=== PATIENT | female | born 1960 | race Caucasian/White ===

== ENCOUNTER 2016-12-27 14:40 | Emergency (ER) | payer OTHER, SELFPAY ==
--- NOTE | 2016-12-27 15:33 | CT ---
CT OF BRAIN PERFORMED WITHOUT CONTRAST ENHANCEMENT: Date: 12/27/16 HISTORY: Altered mental status. COMPARISON: 10/27/14. FINDINGS: The ventricular and cisternal system is within normal limits. There are no signs of intracerebral he morrhage or extra-axial fluid collections. Some minimal mucosal change is seen within the right ethm oid air cells. IMPRESSION: No acute intracranial abnormalities. POS: [facility]
[2016-12-27 15:49] LABS: #Basophils 0.1 thou/uL (0.0-0.2); #Eosinphils 0.1 thou/uL (0.0-0.7); #Lymphocytes 1.5 thou/uL (1.20-3.40); #Monocytes 0.7 thou/uL (0.11-0.59); #Neutrophils 9.2 thou/uL (1.40-6.50); %Basophils 0.6 % (0.0-1.0); %Eosinophils 0.6 % (0.0-10.0); %Lymphocytes 13.3 % (21.0-51.0); Hematocrit 49.2 % (36.0-47.0); Mean Platelet Volume 7.2 fL (7.4-10.4); Red Blood Cell (RBC) Count 5.35 mill/uL (4.20-5.40); White Blood Cell (WBC) Count 11.6 thou/uL (4.8-10.8)
[2016-12-27 16:12] LABS: ALT (SGPT) 11 U/L (8-55); AST (SGOT) 17 U/L (5-34); Acetaminophen Less than 6.0 mcg/mL (10.0-30.0); Alkaline Phosphatase 82 U/L (40-150); Anion Gap 16 mmol/L (10-20); BUN (Urea Nitrogen) 14 mg/dL (9.8-20.1); Bilirubin, Total 0.5 mg/dL (0.2-1.2); CK (CPK) 373 U/L (29-168); Calc. Creatinine Clearance 0 mL/min (70-130); Calcium 9.6 mg/dL (7.8-10.44); Carbon Dioxide 23 mmol/L (22-29); Chloride 101 mmol/L (98-107); Estimated GFR-MDRD 53; Globulin 3.4 g/dL (2.4-3.5); Protein, Total 7.3 g/dL (6.0-8.3); Salicylate Less than 8.0 mg/dL (15.0-30.0)
--- NOTE | 2016-12-27 16:13 | RAD ---
PORTABLE CHEST ONE VIEW: 12/27/16 at 2:36 p.m. HISTORY: Altered mental status. FINDINGS: Comparison is made with the exam of 10/09/16. The heart size is normal. The aorta is tortuous. The lungs are expanded without focal areas of conso lidation, pneumothorax, elias pulmonary edema or pleural effusions. IMPRESSION: No radiographic evidence of acute cardiopulmonary process. POS: [facility]
[2016-12-27 16:24] LABS: Bilirubin Small (Negative); Blood, Urine Negative (Negative); Glucose, Urine (Dipstick) Negative (Negative); Ketone, Urine Negative (Negative); Nitrite Negative (Negative); Protein, Urine (Dipstick) Negative (Neg-Trace)
[2016-12-27] MEDS ORDERED: Potassium Chloride 20 MEQ TAB ONE ×2 (16:25→23:19)
[2016-12-27 16:32] LABS: Amphetamine Not Detected (NotDetected); Methamphetamine Not Detected (NotDetected)
[2016-12-27 16:33] LABS: Methadone Not Detected (NotDetected)
[2016-12-27] MEDS ORDERED: Nicotine 14 MG PATCH TOP SCH (23:30)
[2016-12-28] MEDS ORDERED: Doxepin HCl 25 MG CAP PO PRN (14:22)
[2016-12-28] MEDS ORDERED: rOPINIRole HCl 1 MG TAB PO SCH (21:00)
[2016-12-28] MEDS ORDERED: clonazePAM 1 MG TAB PO SCH (21:00)
[2016-12-29] MEDS ORDERED: clonazePAM 1 MG TAB ONE ×2 (08:40→23:17)
[2016-12-29] MEDS ORDERED: Hydrochlorothiazide 25 MG TAB PO SCH (09:00)
[2016-12-29] MEDS ORDERED: clonazePAM 1 MG TAB PO SCH (21:15)
[2016-12-30] MEDS ORDERED: clonazePAM 1 MG TAB ONE (08:57)
--- NOTE | 2017-01-04 11:43 | EKG ---
Test Reason : DIAGNOSING PURPOSES Blood Pressure : / mmHG Vent. Rate : 099 BPM Atrial Rate : 099 BPM P-R Int : 150 ms QRS Dur : 080 ms QT Int : 538 ms P-R-T Axes : 051 020 070 degrees QTc Int : 690 ms Normal sinus rhythm Nonspecific T wave abnormality Prolonged QT Abnormal ECG Confirmed by VISHAL LOO, NAVYA ([id number]), digital editor SUZANNE SANDERS ([id number]) on 01/04/2017 11:43:01 AM Referred By: Confirmed By:NAVYA RODGERS MD
== END 2016-12-30 18:36 ==
LOC: ERS 14:40
DX: F23 Brief psychotic disorder (principal); F17.210 Nicotine dependence, cigarettes, uncomplicated; F43.10 Post-traumatic stress disorder, unspecified; F31.9 Bipolar disorder, unspecified; F41.9 Anxiety disorder, unspecified; I10 Essential (primary) hypertension; Z79.899 Other long term (current) drug therapy
CPT/HCPCS: 36415; 51701; 70450; 71010; 80053; 80306; 80307; 81003; 82140; 82550; 84443; 85025; 93005; A4353

== ENCOUNTER 2017-06-15 14:19 | Emergency (ER) | payer SELFPAY ==
[2017-06-15 14:49] LABS: #Basophils 0.1 thou/uL (0.0-0.2); #Eosinphils 0.3 thou/uL (0.0-0.7); #Monocytes 0.5 thou/uL (0.11-0.59); #Neutrophils 4.1 thou/uL (1.40-6.50); %Basophils 0.9 % (0.0-1.0); %Eosinophils 3.9 % (0.0-10.0); %Lymphocytes 28.9 % (21.0-51.0); %Monocytes 6.8 % (0.0-10.0); %Neutrophils 59.6 % (42.0-75.0); Hemoglobin 14.2 g/dL (12.0-16.0); Mean Corpuscular HGB CONC 34.2 g/dL (32.0-36.0); Mean Corpuscular Hemoglobin 30.9 pg (27.0-31.0); Mean Corpuscular Volume 90.4 fl (81.0-99.0); Mean Platelet Volume 8.2 fL (7.4-10.4); Platelet Count 259 thou/uL (130-400); RBC Distribution Width 14.9 % (11.5-14.5); White Blood Cell (WBC) Count 6.9 thou/uL (4.8-10.8)
[2017-06-15 14:55] LABS: Bilirubin Negative (Negative); Blood, Urine Negative (Negative); Clarity CLEAR (Clear); Glucose, Urine (Dipstick) Negative (Negative); Leukocyte Negative (Negative); Nitrite Negative (Negative); Protein, Urine (Dipstick) Negative (Neg-Trace); Specific Gravity, Urine 1.016 (1.002-1.036)
[2017-06-15 15:02] LABS: Amphetamine Not Detected (NotDetected); Barbiturates Screen Not Detected (NotDetected); Benzodiazepine Screen Not Detected (NotDetected); Cocaine Metabolite Screen Not Detected (NotDetected); Medtox Control Line Valid? VALID (VALID); Medtox Reader # READER 1; Methadone Not Detected (NotDetected); Methamphetamine Not Detected (NotDetected); Opiate Screen Not Detected (NotDetected); Oxycodone Screen Not Detected (NotDetected); Phencyclidine (PCP) Not Detected (NotDetected); THC/Cannabinoid Screen Not Detected (NotDetected); Tricyclic Screen Not Detected (NotDetected)
[2017-06-15 15:14] LABS: ALT (SGPT) 7 U/L (8-55); AST (SGOT) 11 U/L (5-34); Acetaminophen Less than 6.0 mcg/mL (10.0-30.0); Albumin 3.9 g/dL (3.5-5.0); Alcohol Less than 10 mg/dL (Less than 10); Alkaline Phosphatase 87 U/L (40-150); Anion Gap 15 mmol/L (10-20); BUN (Urea Nitrogen) 17 mg/dL (9.8-20.1); Bilirubin, Total 0.3 mg/dL (0.2-1.2); Calc. Creatinine Clearance 0 mL/min (70-130); Carbon Dioxide 23 mmol/L (22-29); Chloride 105 mmol/L (98-107); Estimated GFR-MDRD 62; Globulin 3.2 g/dL (2.4-3.5); Glucose 97 mg/dL (70-105); Potassium 4.1 mmol/L (3.5-5.1); Protein, Total 7.1 g/dL (6.0-8.3); Salicylate Less than 8.0 mg/dL (15.0-30.0); Sodium 139 mmol/L (136-145)
== END 2017-06-15 17:05 | disposition home or self-care (01) ==
LOC: ERS 14:19
DX: R45.851 Suicidal ideations (principal); F32.9 Major depressive disorder, single episode, unspecified; I10 Essential (primary) hypertension; F20.9 Schizophrenia, unspecified; F41.9 Anxiety disorder, unspecified; F43.10 Post-traumatic stress disorder, unspecified; F17.210 Nicotine dependence, cigarettes, uncomplicated; Z79.899 Other long term (current) drug therapy
CPT/HCPCS: 36415; 80053; 80306; 80307; 81003; 84443; 85025; 99285

== ENCOUNTER 2017-07-19 12:14 | Emergency (ER) | payer SELFPAY ==
--- NOTE | 2017-07-19 13:20 | RAD ---
CHEST: Date: 07/19/17 HISTORY: Cough. COMPARISON: Chest radiograph dated 12/27/16. FINDINGS: New from the comparison examination are peripheral improving masses versus less likely consolidation. Large sliding hiatal hernia. Most of these peripheral masses are in the left upper lobe and left low er lobe. No pneumothorax. IMPRESSION: 1. Findings concerning for masses in the left upper lobe and left lower lobe, versus less likely are as of peripheral consolidation. Follow-up CT of the chest recommended. 2. Large sliding hiatal hernia. CODE T. CODE LN. POS: [facility]
== END 2017-07-19 15:09 | disposition home or self-care (01) ==
LOC: ERS 12:14
DX: J18.9 Pneumonia, unspecified organism (principal); F20.9 Schizophrenia, unspecified; F41.9 Anxiety disorder, unspecified; F31.9 Bipolar disorder, unspecified; F43.10 Post-traumatic stress disorder, unspecified; F17.210 Nicotine dependence, cigarettes, uncomplicated; I10 Essential (primary) hypertension; Z79.899 Other long term (current) drug therapy; Z71.6 Tobacco abuse counseling
CPT/HCPCS: 71046; 93005; 99406

== ENCOUNTER 2017-08-11 10:29 | Emergency (ER) | payer SELFPAY | END 2017-08-11 12:19 | disposition home or self-care (01) | LOC: ERS 10:29 | DX: J18.9 Pneumonia, unspecified organism (principal); I10 Essential (primary) hypertension; F20.9 Schizophrenia, unspecified; F41.9 Anxiety disorder, unspecified; F31.9 Bipolar disorder, unspecified; F43.10 Post-traumatic stress disorder, unspecified; F17.210 Nicotine dependence, cigarettes, uncomplicated | CPT/HCPCS: 99281 ==

== ENCOUNTER 2017-09-23 10:31 | Emergency (ER) | payer SELFPAY ==
[2017-09-23 11:43] LABS: #Basophils 0.1 thou/uL (0.0-0.2); #Eosinphils 0.2 thou/uL (0.0-0.7); #Lymphocytes 1.8 thou/uL (1.20-3.40); #Monocytes 0.4 thou/uL (0.11-0.59); #Neutrophils 3.4 thou/uL (1.40-6.50); %Basophils 1.2 % (0.0-1.0); %Eosinophils 3.6 % (0.0-10.0); %Monocytes 6.9 % (0.0-10.0); %Neutrophils 57.3 % (42.0-75.0); Hemoglobin 14.3 g/dL (12.0-16.0); Mean Corpuscular HGB CONC 32.6 g/dL (32.0-36.0); Mean Corpuscular Hemoglobin 28.9 pg (27.0-31.0); Mean Corpuscular Volume 88.7 fL (78.0-98.0); Mean Platelet Volume 8.7 fL (7.4-10.4); Platelet Count 234 thou/uL (130-400); RBC Distribution Width 16.7 % (11.5-14.5); Red Blood Cell (RBC) Count 4.95 mill/uL (4.20-5.40); White Blood Cell (WBC) Count 5.9 thou/uL (4.8-10.8)
[2017-09-23 11:52] LABS: ALT (SGPT) 12 U/L (8-55); AST (SGOT) 16 U/L (5-34); Albumin 4.2 g/dL (3.5-5.0); Alcohol Less than 10 mg/dL (Less than 10); Alkaline Phosphatase 97 U/L (40-150); Anion Gap 13 mmol/L (10-20); BUN (Urea Nitrogen) 14 mg/dL (9.8-20.1); Bilirubin, Total 0.3 mg/dL (0.2-1.2); Calc. Creatinine Clearance 0 mL/min (70-130); Calcium 9.3 mg/dL (7.8-10.44); Carbon Dioxide 24 mmol/L (22-29); Chloride 103 mmol/L (98-107); Estimated GFR-MDRD 54; Globulin 3.4 g/dL (2.4-3.5); Glucose 81 mg/dL (70-105); Potassium 4.5 mmol/L (3.5-5.1); Protein, Total 7.6 g/dL (6.0-8.3); Sodium 135 mmol/L (136-145)
[2017-09-23 11:53] LABS: Acetaminophen Less than 6.0 mcg/mL (10.0-30.0); Alcohol Less than 10 mg/dL (Less than 10); CK (CPK) 44 U/L (29-168); Salicylate Less than 8.0 mg/dL (15.0-30.0)
[2017-09-23 12:09] LABS: Bilirubin Negative (Negative); Blood, Urine Negative (Negative); Clarity CLEAR (Clear); Glucose, Urine (Dipstick) Negative (Negative); Leukocyte Small (Negative); Nitrite Negative (Negative); Protein, Urine (Dipstick) Negative (Neg-Trace); Specific Gravity, Urine 1.016 (1.002-1.036); pH, Urine 6.5 (5.0-9.0)
[2017-09-23 12:10] LABS: Bacteria/HPF 1+ HPF (None Seen); Hyaline Casts/LPF 0-3 HYALINE CAST LPF (0-3 Hyaline); Pathc Cast-AUWi Flag 0.58 (0-2.49); RBC/HPF 0-3 HPF (0-3)
[2017-09-23 12:24] LABS: Amphetamine Not Detected (NotDetected); Barbiturates Screen Not Detected (NotDetected); Benzodiazepine Screen Not Detected (NotDetected); Cocaine Metabolite Screen Not Detected (NotDetected); Medtox Control Line Valid? VALID (VALID); Medtox Reader # READER 4; Methadone Not Detected (NotDetected); Methamphetamine Not Detected (NotDetected); Opiate Screen Not Detected (NotDetected); Oxycodone Screen Not Detected (NotDetected); Phencyclidine (PCP) Not Detected (NotDetected); THC/Cannabinoid Screen Not Detected (NotDetected); Tricyclic Screen Detected (NotDetected)
[2017-09-23] MEDS ORDERED: Acetaminophen 500 MG TAB ONE (18:35)
[2017-09-23] MEDS ORDERED: Amitriptyline HCl 100 MG TAB PO SCH (22:15)
[2017-09-23] MEDS ORDERED: Prazosin HCl 1 MG CAP PO SCH (22:15)
[2017-09-23] MEDS ORDERED: Gabapentin 300 MG CAP PO SCH (22:15)
== END 2017-09-24 03:45 ==
LOC: ERS 10:31
DX: F32.9 Major depressive disorder, single episode, unspecified (principal); I10 Essential (primary) hypertension; F20.9 Schizophrenia, unspecified; F41.9 Anxiety disorder, unspecified; F17.210 Nicotine dependence, cigarettes, uncomplicated; F43.10 Post-traumatic stress disorder, unspecified; Z79.899 Other long term (current) drug therapy
CPT/HCPCS: 36415; 80053; 80306; 80307; 81003; 81015; 82550; 84443; 85025; 87086; 93005; 99285

== ENCOUNTER 2018-12-02 08:51 | Emergency (ER) | payer MEDICAID ==
--- NOTE | 2018-12-02 09:31 | CT ---
HEAD CT NONCONTRAST: Date: 12/02/18 COMPARISON: 12/27/16. INDICATION: Altered mental status. FINDINGS: There is no ventriculomegaly, mass effect, midline shift, or acute intracranial hemorrhage. Calvarium is intact. Paranasal sinuses are clear. IMPRESSION: No acute intracranial abnormality. POS: [facility]
[2018-12-02 09:52] LABS: #Eosinphils 0.1 thou/uL (0.0-0.7); #Lymphocytes 1.5 thou/uL (1.20-3.40); #Monocytes 0.9 thou/uL (0.11-0.59); #Neutrophils 10.4 thou/uL (1.40-6.50); %Basophils 0.3 % (0.0-1.0); %Eosinophils 0.5 % (0.0-10.0); %Lymphocytes 11.6 % (21.0-51.0); %Monocytes 6.8 % (0.0-10.0); %Neutrophils 80.7 % (42.0-75.0); Hemoglobin 17.6 g/dL (12.0-16.0); Mean Corpuscular HGB CONC 32.2 g/dL (32.0-36.0); Mean Corpuscular Hemoglobin 30.4 pg (27.0-31.0); Mean Corpuscular Volume 94.7 fL (78.0-98.0); Platelet Count 270 thou/uL (130-400); RBC Distribution Width 17.4 % (11.5-14.5); Red Blood Cell (RBC) Count 5.77 mill/uL (4.20-5.40); White Blood Cell (WBC) Count 12.9 thou/uL (4.8-10.8)
[2018-12-02 10:33] LABS: Bacteria/HPF 2+ HPF (None Seen); Bilirubin 1+ (Negative); Blood, Urine Trace (Negative); Clarity Turbid (Clear); Glucose, Urine (Dipstick) Normal (Negative); Leukocyte 500 Leu/uL (Negative); Nitrite Negative (Negative); Protein, Urine (Dipstick) 50 mg/dL (Neg-Trace); Urobilinogen 6 mg/dL (Less than 2)
[2018-12-02 10:49] LABS: Amphetamine Not Detected (NotDetected); Barbiturates Screen Not Detected (NotDetected); Benzodiazepine Screen Not Detected (NotDetected); Cocaine Metabolite Screen Not Detected (NotDetected); Medtox Control Line Valid? VALID (VALID); Medtox Reader # READER 4; Methadone Not Detected (NotDetected); Methamphetamine Not Detected (NotDetected); Opiate Screen Not Detected (NotDetected); Oxycodone Screen Not Detected (NotDetected); Phencyclidine (PCP) Not Detected (NotDetected); THC/Cannabinoid Screen Detected (NotDetected); Tricyclic Screen Detected (NotDetected)
[2018-12-02 11:00] LABS: ALT (SGPT) 16 U/L (8-55); AST (SGOT) 17 U/L (5-34); Acetaminophen Less than 6.0 mcg/mL (10.0-30.0); Albumin 4.2 g/dL (3.5-5.0); Alcohol Less than 10 mg/dL (Less than 10); Alkaline Phosphatase 94 U/L (40-150); Anion Gap 16 mmol/L (10-20); BUN (Urea Nitrogen) 25 mg/dL (9.8-20.1); Bilirubin, Total 1.1 mg/dL (0.2-1.2); CK (CPK) 241 U/L (29-168); Calc. Creatinine Clearance 0 mL/min (70-130); Calcium 9.2 mg/dL (7.8-10.44); Carbon Dioxide 19 mmol/L (22-29); Chloride 107 mmol/L (98-107); Estimated GFR-MDRD 68; Globulin 2.8 g/dL (2.4-3.5); Glucose 109 mg/dL (70-105); Potassium 3.7 mmol/L (3.5-5.1); Salicylate Less than 8.0 mg/dL (15.0-30.0); Sodium 138 mmol/L (136-145)
--- NOTE | 2018-12-06 01:03 | EKG ---
Test Reason : Blood Pressure : / mmHG Vent. Rate : 121 BPM Atrial Rate : 121 BPM P-R Int : 118 ms QRS Dur : 072 ms QT Int : 350 ms P-R-T Axes : 066 020 071 degrees QTc Int : 497 ms Sinus tachycardia Possible Left atrial enlargement Nonspecific ST and T wave abnormality Abnormal ECG Confirmed by ALVARO RAY ([id number]), content editor EVERARDO EVERETT ([id number]) on 12/06/2018 1:02:09 AM Referred By: Confirmed By:ALVARO RAY
== END 2018-12-02 16:20 | disposition home or self-care (01) ==
LOC: ERS 08:51
DX: G47.00 Insomnia, unspecified (principal); F31.9 Bipolar disorder, unspecified; R00.0 Tachycardia, unspecified; I10 Essential (primary) hypertension; F20.9 Schizophrenia, unspecified; F43.10 Post-traumatic stress disorder, unspecified; F17.210 Nicotine dependence, cigarettes, uncomplicated; Z79.899 Other long term (current) drug therapy
CPT/HCPCS: 36415; 70450; 80053; 80306; 80307; 81003; 81015; 82550; 84484; 85025; 87086; 93005; 96360; 96361

== ENCOUNTER 2020-01-25 12:52 | Outpatient (CLI) | payer OTHER ==
--- NOTE | 2020-01-26 09:02 | MMO ---
Bilateral MAMMO Bilat Screen [facility]. CLINICAL HISTORY: Patient is 59 years old and is seen for screening. The patient has no family history of breast cancer. The patient has no personal history of cancer. VIEWS: The views performed were: bilateral craniocaudal and bilateral mediolateral oblique. FILMS COMPARED: The present examination has been compared to prior imaging studies performed at [facility] on 11/18/2005, 12/18/2005, 08/02/2014 and 08/03/2015. This study has been interpreted with the assistance of computer-aided detection. MAMMOGRAM FINDINGS: The breasts are almost entirely fat. There are no suspicious masses, suspicious calcifications, or new areas of architectural distortion. IMPRESSION: THERE IS NO MAMMOGRAPHIC EVIDENCE OF MALIGNANCY. A ROUTINE FOLLOW-UP MAMMOGRAM IN 1 YEAR IS RECOMMENDED. ACR BI-RADS Category 1 - Negative MAMMOGRAPHY NOTE: 1. A negative mammogram report should not delay a biopsy if a dominant of clinically suspicious mass is present. 2. Approximately 10% to 15% of breast cancers are not detected by mammography. 3. Adenosis and dense breasts may obscure an underlying neoplasm. Reported by: JULIETA YARBROUGH MD Electonically Signed: [id number]
== END 2020-01-25 12:53 | disposition home or self-care (01) ==
LOC: BICMAMMO 12:52
PROVIDERS: ATTEND Hospitalist
DX: Z12.31 Encounter for screening mammogram for malignant neoplasm of breast (principal)
CPT/HCPCS: 77067

== ENCOUNTER 2020-07-21 10:17 | Inpatient (IN) | payer OTHER ==
[2020-07-21 11:31] LABS: Hemoglobin 14.9 g/dL (12.0-16.0); Mean Corpuscular HGB CONC 32.6 g/dL (32.0-36.0); Mean Corpuscular Hemoglobin 29.8 pg (27.0-31.0); Mean Corpuscular Volume 91.4 fL (78.0-98.0); Mean Platelet Volume 9.7 fL (7.4-10.4); Platelet Count 291 thou/uL (130-400); RBC Distribution Width 15.6 % (11.5-14.5); Red Blood Cell (RBC) Count 5.01 mill/uL (4.20-5.40); White Blood Cell (WBC) Count 13.7 thou/uL (4.8-10.8)
[2020-07-21 11:48] LABS: Band 2 % (5-11); Lymphocytes 18 % (21-51); MDiff Complete? YES; Monocytes 5 % (0-10); Neutrophil 74 % (42-75); Platelet Morphology Comment Appears Adequate; RBC Morphology Normal
[2020-07-21 11:57] LABS: ALT (SGPT) 17 U/L (8-55); AST (SGOT) 20 U/L (5-34); Albumin 4.5 g/dL (3.4-4.8); Alkaline Phosphatase 98 U/L (40-110); Anion Gap 19 mmol/L (10-20); BUN (Urea Nitrogen) 23 mg/dL (9.8-20.1); Bilirubin, Total 0.6 mg/dL (0.2-1.2); Calc. Creatinine Clearance 0 mL/min (70-130); Calcium 9.4 mg/dL (7.8-10.44); Carbon Dioxide 18 mmol/L (23-31); Chloride 105 mmol/L (98-107); Glucose 122 mg/dL (80-115); Potassium 4.1 mmol/L (3.5-5.1); Protein, Total 7.5 g/dL (5.8-8.1); Sodium 138 mmol/L (136-145)
[2020-07-21 12:33] LABS: Bacteria/HPF None Seen HPF (None Seen); Squamous Epithelial 0-3 HPF (0-3); WBC/HPF 0-3 HPF (0-3)
[2020-07-21 12:36] LABS: Bilirubin 1+ (Negative); Blood, Urine Negative (Negative); Clarity Clear (Clear); Glucose, Urine (Dipstick) Normal (Negative); Ketone, Urine 40 mg/dL (Negative); Leukocyte Negative Leu/uL (Negative); Nitrite Negative (Negative); Protein, Urine (Dipstick) 50 mg/dL (Neg-Trace); Specific Gravity, Urine 1.036 (1.002-1.036); Urobilinogen 6 mg/dL (Less than 2)
[2020-07-21] MEDS ORDERED: Ondansetron PF 4 MG/2 ML Vial ONE (12:38)
[2020-07-21] MEDS ORDERED: Vancomycin 1 GM/200 ML BAG ONE (12:38)
[2020-07-21] MEDS ORDERED: cefTRIAXone\\ROCEPHIN 2 GM VIAL ONE (12:38)
[2020-07-21 14:24] VITALS: BMI 34.3
[2020-07-21] MEDS ORDERED: Calcium Carbonate 500 MG ChewTAB PO PRN (14:43)
[2020-07-21] MEDS ORDERED: Ondansetron ODT 4 MG TAB SL PRN (14:45)
[2020-07-21] MEDS ORDERED: Sodium Chloride 0.9% 1,000 ML IV SCH (14:45)
[2020-07-21] MEDS ORDERED: Acetaminophen 325 MG TAB PO PRN (14:45)
[2020-07-21] MEDS ORDERED: Ondansetron PF 4 MG/2 ML Vial IVP PRN (14:45)
[2020-07-21 15:15] LABS: Lactic Acid 1.8 mmol/L (0.5-2.2)
[2020-07-21] MEDS ORDERED: Lactated Ringer's 1,000 ML IV SCH (15:15)
[2020-07-21] MEDS ORDERED: Albuterol Sulfate 2.5 mg/3 ml Neb NEB PRN (15:43)
[2020-07-21 15:47] LABS: Amphetamine Not Detected (NotDetected); Barbiturates Screen Not Detected (NotDetected); Benzodiazepine Screen Not Detected (NotDetected); Cocaine Metabolite Screen Not Detected (NotDetected); Medtox Control Line Valid? VALID (VALID); Medtox Reader # READER 1; Methadone Not Detected (NotDetected); Methamphetamine Not Detected (NotDetected); Opiate Screen Not Detected (NotDetected); Oxycodone Screen Not Detected (NotDetected); Phencyclidine (PCP) Not Detected (NotDetected); THC/Cannabinoid Screen Detected (NotDetected); Tricyclic Screen Detected (NotDetected)
[2020-07-21 15:51] LABS: Thyroid Stimulating Hormone 0.6357 uIU/mL (0.35-4.94)
[2020-07-21 16:26] LABS: Hemoglobin A1c 5.7 % (4.0-6.0)
[2020-07-21 16:57] LABS: HIV (1/2) Antibody/Antigen Non-Reactive (NonReactive); HIV 1/2 INDEX 0.17 S/CO (<1.00)
[2020-07-21 17:02] LABS: Syphilis Antibody Index 16.44 S/CO (<1.00 Non-Reactive)
[2020-07-21 17:19] LABS: Actual Bicarbonate (HCO3v) 21 mEq/L (22-28); Base Excess -2.5 mEq/L (-2.0 to +3.0); Calcium, Ionized (venous) 1.09 mmol/L (1.16-1.32); Chloride (VBG) 108 mmol/L (98-106); Hemoglobin (Hb) 13.9 g/dL (11.7-16.0); Potassium (VBG) 3.57 mmol/L (3.70-5.30); Sodium 139.9 mmol/L (133-146); pH (venous) 7.41 (7.32-7.43)
[2020-07-21 17:59] LABS: Syphilis Antibody INDETERMINATE (Nonreactive)
[2020-07-21] MEDS: Lactated Ringer's 1,000 ML IV SCH ×2 (18:10→23:00)
[2020-07-21] MEDS: Ipratropium Bromide 2.5 ml Neb NEB SCH (18:49)
[2020-07-21 19:53] LABS: SARS-CoV-2 IgG Ab Non-Reactive (NonReactive); SARS-CoV-2 IgG Index 0.02 S/CO (< 1.40)
[2020-07-21] MEDS: Atorvastatin Calcium 10 MG TAB PO SCH (20:41)
[2020-07-22] MEDS: Ipratropium Bromide 2.5 ml Neb NEB SCH ×4 (00:24→19:00)
[2020-07-22 04:58] LABS: #Basophils 0.1 thou/uL (0.0-0.2); #Eosinphils 0.1 thou/uL (0.0-0.7); #Monocytes 0.9 thou/uL (0.11-0.59); #Neutrophils 9.4 thou/uL (1.40-6.50); %Eosinophils 0.7 % (0.0-10.0); %Lymphocytes 15.9 % (21.0-51.0); %Monocytes 6.9 % (0.0-10.0); %Neutrophils 75.6 % (42.0-75.0); Hemoglobin 12.6 g/dL (12.0-16.0); Mean Corpuscular HGB CONC 32.7 g/dL (32.0-36.0); Mean Corpuscular Volume 91.8 fL (78.0-98.0); Mean Platelet Volume 9.4 fL (7.4-10.4); Platelet Count 227 thou/uL (130-400); RBC Distribution Width 15.4 % (11.5-14.5); White Blood Cell (WBC) Count 12.4 thou/uL (4.8-10.8)
[2020-07-22 05:04] LABS: Anion Gap 13 mmol/L (10-20); BUN (Urea Nitrogen) 20 mg/dL (9.8-20.1); Calc. Creatinine Clearance 97 mL/min (70-130); Calcium 8.4 mg/dL (7.8-10.44); Carbon Dioxide 21 mmol/L (23-31); Chloride 110 mmol/L (98-107); Glucose 98 mg/dL (80-115); Potassium 3.8 mmol/L (3.5-5.1); Sodium 140 mmol/L (136-145)
[2020-07-22] MEDS: Lactated Ringer's 1,000 ML IV SCH ×3 (05:34→15:52)
[2020-07-22] MEDS: Lisinopril/Hydrochlorothiazide 10 mg/12.5 mg Tablet PO SCH (08:37)
[2020-07-22] MEDS: Enoxaparin Sodium 40 MG/0.4 ML SYRINGE SC SCH (08:37)
[2020-07-22] MEDS: Nicotine 14 MG PATCH TD SCH (09:24)
[2020-07-22 11:59] LABS: SARS-CoV-2 NAA Rapid Test Not Detected (NotDetected)
[2020-07-22] MEDS ORDERED: Ondansetron ORAL SOLN. 4 MG/5 ML UDCUP PO PRN (17:04)
[2020-07-22] MEDS: Atorvastatin Calcium 10 MG TAB PO SCH (22:05)
[2020-07-23] MEDS: Lactated Ringer's 1,000 ML IV SCH ×2 (06:08→08:14)
[2020-07-23] MEDS: Ipratropium Bromide 2.5 ml Neb NEB SCH ×4 (07:18→19:38)
[2020-07-23] MEDS: Enoxaparin Sodium 40 MG/0.4 ML SYRINGE SC SCH (08:06)
[2020-07-23] MEDS: Lisinopril/Hydrochlorothiazide 10 mg/12.5 mg Tablet PO SCH (08:06)
[2020-07-23] MEDS: Nicotine 14 MG PATCH TD SCH (08:06)
[2020-07-23] MEDS ORDERED: Artificial Tear Sol 15 ML BOT EA EYE PRN (08:09)
[2020-07-23] MEDS: Polyethylene Glycol 3350 17 GM Packet PO SCH ×2 (08:14→08:19)
[2020-07-23] MEDS ORDERED: Senokot 8.6 MG TAB PO SCH (08:15)
[2020-07-23] MEDS: Ondansetron ODT 4 MG TAB PO PRN ×2 (14:12→22:15)
[2020-07-23] MEDS: Atorvastatin Calcium 10 MG TAB PO SCH (21:48)
[2020-07-24] MEDS: Ipratropium Bromide 2.5 ml Neb NEB SCH ×2 (01:40→07:40)
[2020-07-24] MEDS: Ondansetron ODT 4 MG TAB PO PRN (04:28)
[2020-07-24] MEDS: Lisinopril/Hydrochlorothiazide 10 mg/12.5 mg Tablet PO SCH (07:56)
[2020-07-24] MEDS: Enoxaparin Sodium 40 MG/0.4 ML SYRINGE SC SCH (07:56)
[2020-07-24] MEDS: Polyethylene Glycol 3350 17 GM Packet PO SCH (07:56)
[2020-07-24] MEDS: Nicotine 14 MG PATCH TD SCH (07:57)
[2020-07-24] MEDS ORDERED: Pantoprazole 40 MG GRANULES PACKET PO SCH (10:15)
[2020-07-24] MEDS ORDERED: Senokot 8.6 MG TAB PO SCH (10:15)
[2020-07-24 11:10] VITALS: BP 132/66; TEMP 98.3
[2020-07-24 12:37] LABS: Hep B Surface AG-Rflx Sendout Negative (Negative); Hepatitis B Core Total Negative (Negative); Hepatitis B Surface AB-Sendout Non Reactive (.)
== END 2020-07-24 13:05 | disposition home or self-care (01) | DRG 917 ==
LOC: ERS 10:17 → 2NO 12:48 → OBSVTOIN 07-23 09:42
PROVIDERS: ADMIT Student in an Organized Health Care Education/Training Program; ATTEND Student in an Organized Health Care Education/Training Program
DX: T42.6X1A Poisoning by other antiepileptic and sedative-hypnotic drugs, accidental (unintentional), initial encounter (principal); G92 Toxic encephalopathy; K52.1 Toxic gastroenteritis and colitis; Z20.822 Contact with and (suspected) exposure to COVID-19; R11.2 Nausea with vomiting, unspecified; F17.210 Nicotine dependence, cigarettes, uncomplicated; F31.9 Bipolar disorder, unspecified; I10 Essential (primary) hypertension; E78.5 Hyperlipidemia, unspecified; R73.03 Prediabetes; G62.9 Polyneuropathy, unspecified; F41.9 Anxiety disorder, unspecified; J44.9 Chronic obstructive pulmonary disease, unspecified; K21.9 Gastro-esophageal reflux disease without esophagitis; E86.0 Dehydration; E53.8 Deficiency of other specified B group vitamins; A08.4 Viral intestinal infection, unspecified; R30.0 Dysuria; K44.9 Diaphragmatic hernia without obstruction or gangrene; K59.00 Constipation, unspecified; Z79.899 Other long term (current) drug therapy
CPT/HCPCS: 0240U; 36415; 36416; 51701; 70450; 71045; 80048; 80053; 80306; 80307; 81003; 81015; 82010; 82607; 82805; 83036; 83605; 83930; 83935; 84145; 84443; 84484; 85025; 85652; 86593; 86704; 86705; 86706; 86707; 86769; 86780; 87040; 87086; 87340; 87350; 87389; 87521; 87635; 93005; 94640; 96365; 96367; 96372; 96375; G0378; J0696; J1650; J2405; J3370; Q0162; U0003; U0005

== ENCOUNTER 2020-09-08 20:57 | Emergency (ER) | payer OTHER ==
[2020-09-08] MEDS ORDERED: Ketorolac Tromethamine 30 MG/ML VIAL ONE (23:55)
[2020-09-08] MEDS ORDERED: Metoclopramide HCl 10 MG/2 ML VIAL ONE (23:55)
[2020-09-08] MEDS ORDERED: diphenhydrAMINE 50 MG/ML VIAL ONE (23:55)
== END 2020-09-09 00:42 | disposition home or self-care (01) ==
LOC: ERS 20:57
DX: R51.9 Headache, unspecified (principal); I10 Essential (primary) hypertension
CPT/HCPCS: 96365; 96375; J1200; J1885; J2765

== ENCOUNTER 2020-11-17 16:27 | Emergency (ER) | payer OTHER ==
[2020-11-17] MEDS ORDERED: traMADol HCl 50 MG TAB ONE (17:07)
== END 2020-11-17 17:24 | disposition home or self-care (01) ==
LOC: ERS 16:27
DX: M54.5 Low back pain (principal); I10 Essential (primary) hypertension; F17.210 Nicotine dependence, cigarettes, uncomplicated
CPT/HCPCS: 99283

== ENCOUNTER 2020-12-07 09:33 | Inpatient (IN) | payer OTHER ==
[2020-12-07 12:32] LABS: Hemoglobin 10.8 g/dL (12.0-16.0); Mean Corpuscular HGB CONC 32.3 g/dL (32.0-36.0); Mean Corpuscular Hemoglobin 28.1 pg (27.0-31.0); Mean Platelet Volume 7.7 fL (7.4-10.4); Platelet Count 537 thou/uL (130-400); RBC Distribution Width 17.8 % (11.5-14.5); Red Blood Cell (RBC) Count 3.83 mill/uL (4.20-5.40); White Blood Cell (WBC) Count 36.2 thou/uL (4.8-10.8)
[2020-12-07 12:49] LABS: Anion Gap 18 mmol/L (10-20); BUN (Urea Nitrogen) 62 mg/dL (9.8-20.1); Calc. Creatinine Clearance 0 mL/min (70-130); Carbon Dioxide 15 mmol/L (23-31); Chloride 104 mmol/L (98-107); Potassium 5.1 mmol/L (3.5-5.1); Sodium 132 mmol/L (136-145)
[2020-12-07 12:50] LABS: ALT (SGPT) 24 U/L (8-55); AST (SGOT) 37 U/L (5-34); Albumin 3.1 g/dL (3.4-4.8); Alkaline Phosphatase 197 U/L (40-110); Bilirubin, Total 1.8 mg/dL (0.2-1.2); Calcium 9.6 mg/dL (7.8-10.44); Globulin 4.8 g/dL (2.4-3.5); Glucose 123 mg/dL (80-115); Protein, Total 7.9 g/dL (5.8-8.1)
[2020-12-07] MEDS ORDERED: Azithromycin 500 MG VIAL ONE (12:56)
[2020-12-07] MEDS ORDERED: cefTRIAXone\\ROCEPHIN 2 GM VIAL ONE (12:56)
[2020-12-07 13:01] LABS: Band 11 % (5-11); Lymphocytes 3 % (21-51); MDiff Complete? YES; Metamyelocyte 2 % (0-0); Monocytes 4 % (0-10); Myelocyte 2 % (0-0); Neutrophil 76 % (42-75); Platelet Morphology Comment Appears Increased; Polychromasia SLIGHT = 2-3 cells (100X) (0-2/hpf); Reactive Lymphocytes 2 % (0-10); Target Cells SLIGHT = 2-5 cells (100X) (0-1/hpf)
[2020-12-07 14:00] LABS: CK (CPK) 28 U/L (29-168); Lipase 29 U/L (8-78)
[2020-12-07 15:27] LABS: Hemoglobin 9.1 g/dL (12.0-16.0); Mean Corpuscular HGB CONC 31.8 g/dL (32.0-36.0); Mean Platelet Volume 7.5 fL (7.4-10.4); Platelet Count 512 thou/uL (130-400); RBC Distribution Width 17.6 % (11.5-14.5); Red Blood Cell (RBC) Count 3.24 mill/uL (4.20-5.40); White Blood Cell (WBC) Count 30.7 thou/uL (4.8-10.8)
[2020-12-07] MEDS ORDERED: Cyclobenzaprine 10 MG TAB PO PRN (15:35)
[2020-12-07 15:50] LABS: Anion Gap 16 mmol/L (10-20); BUN (Urea Nitrogen) 61 mg/dL (9.8-20.1); Calc. Creatinine Clearance 0 mL/min (70-130); Calcium 8.1 mg/dL (7.8-10.44); Carbon Dioxide 16 mmol/L (23-31); Chloride 108 mmol/L (98-107); Glucose 114 mg/dL (80-115); Potassium 4.7 mmol/L (3.5-5.1); Sodium 135 mmol/L (136-145)
[2020-12-07 16:00] LABS: SARS-CoV-2 NAA Rapid Test Not Detected (NotDetected)
[2020-12-07 16:11] LABS: Band 10 % (5-11); Eosinophils 1 % (0-10); Lymphocytes 3 % (21-51); MDiff Complete? YES; Metamyelocyte 2 % (0-0); Monocytes 10 % (0-10); Myelocyte 2 % (0-0); Neutrophil 70 % (42-75); Platelet Morphology Comment Appears Increased; Polychromasia SLIGHT = 2-3 cells (100X) (0-2/hpf); Reactive Lymphocytes 2 % (0-10); Target Cells MODERATE= 6-15 cells (100X) (0-1/hpf)
[2020-12-07 16:25] VITALS: BMI 38.0
[2020-12-07] MEDS: Lactated Ringer's 1,000 ML IV SCH ×2 (16:28→23:16)
[2020-12-07] MEDS ORDERED: Albuterol Sulfate 2.5 mg/3 ml Neb NEB PRN (16:46)
[2020-12-07] MEDS ORDERED: Acetaminophen 325 MG TAB ONE (17:40)
[2020-12-07] MEDS: Acetaminophen 325 MG TAB PO PRN (17:42)
[2020-12-07 19:38] LABS: Bilirubin Negative (Negative); Blood, Urine Negative (Negative); Clarity Turbid (Clear); Glucose, Urine (Dipstick) Normal (Negative); Ketone, Urine Negative (Negative); Leukocyte 500 Leu/uL (Negative); Nitrite Negative (Negative); Protein, Urine (Dipstick) 50 mg/dL (Neg-Trace); RBC/HPF 0-3 HPF (0-3); Specific Gravity, Urine 1.018 (1.002-1.036); Squamous Epithelial 0-3 HPF (0-3); Urobilinogen 6 mg/dL (Less than 2); pH, Urine 5.5 (5.0-9.0)
[2020-12-07 19:39] LABS: Bacteria/HPF 1+ HPF (None Seen)
[2020-12-07] MEDS: Mometasone Furoate 30 PUFF 220 MCG INH SCH (19:42)
[2020-12-07] MEDS: Heparin 5,000 UNITS/ML VIAL SC SCH (20:03)
[2020-12-07] MEDS: guaiFENesin ER 600 MG TAB PO SCH (20:17)
[2020-12-07] MEDS: Benztropine 1 MG TAB PO SCH (20:17)
[2020-12-07] MEDS ORDERED: traMADol HCl 50 MG TAB ONE (22:38)
[2020-12-07] MEDS: busPIRone HCl 10 MG TAB PO SCH (23:15)
[2020-12-07] MEDS: Gabapentin 300 MG CAP PO SCH (23:15)
[2020-12-07] MEDS: traMADol HCl 50 MG TAB PO SCH (23:16)
[2020-12-08 05:32] LABS: Hemoglobin 9.1 g/dL (12.0-16.0); Mean Corpuscular HGB CONC 32.6 g/dL (32.0-36.0); Mean Corpuscular Hemoglobin 28.7 pg (27.0-31.0); Mean Corpuscular Volume 88.2 fL (78.0-98.0); Mean Platelet Volume 7.8 fL (7.4-10.4); Platelet Count 542 thou/uL (130-400); RBC Distribution Width 17.6 % (11.5-14.5); Red Blood Cell (RBC) Count 3.18 mill/uL (4.20-5.40); White Blood Cell (WBC) Count 34.7 thou/uL (4.8-10.8)
[2020-12-08 05:46] LABS: Anion Gap 15 mmol/L (10-20); BUN (Urea Nitrogen) 57 mg/dL (9.8-20.1); Calc. Creatinine Clearance 40 mL/min (70-130); Calcium 8.7 mg/dL (7.8-10.44); Carbon Dioxide 16 mmol/L (23-31); Chloride 109 mmol/L (98-107); Glucose 109 mg/dL (80-115); Potassium 4.4 mmol/L (3.5-5.1); Sodium 136 mmol/L (136-145)
[2020-12-08 06:04] LABS: Band 3 % (5-11); Eosinophils 1 % (0-10); Lymphocytes 5 % (21-51); MDiff Complete? YES; Monocytes 10 % (0-10); Neutrophil 81 % (42-75); Platelet Morphology Comment Appears Increased; Target Cells SLIGHT = 2-5 cells (100X) (0-1/hpf)
[2020-12-08] MEDS: Lactated Ringer's 1,000 ML IV SCH ×2 (06:18→14:39)
[2020-12-08] MEDS: traMADol HCl 50 MG TAB PO SCH ×3 (06:20→21:21)
[2020-12-08 08:58] LABS: Legionella Urinary Ag Negative (Negative); Strep pneumo Urine Ag NEGATIVE (NEGATIVE)
[2020-12-08] MEDS ORDERED: Lisinopril/Hydrochlorothiazide 10 mg/12.5 mg Tablet PO SCH (09:00)
[2020-12-08] MEDS: Benztropine 1 MG TAB PO SCH ×2 (10:11→21:20)
[2020-12-08] MEDS: Gabapentin 300 MG CAP PO SCH ×2 (10:12→21:20)
[2020-12-08] MEDS: Loratadine 10 MG TAB PO SCH (10:13)
[2020-12-08] MEDS: guaiFENesin ER 600 MG TAB PO SCH ×2 (10:13→21:20)
[2020-12-08] MEDS: Heparin 5,000 UNITS/ML VIAL SC SCH ×3 (10:13→21:24)
[2020-12-08] MEDS: busPIRone HCl 10 MG TAB PO SCH ×3 (10:13→21:20)
[2020-12-08] MEDS: cefTRIAXone\\ROCEPHIN 2 GM in Sodium Chloride 0.9% 100 ML IVPB SCH (15:17)
[2020-12-08] MEDS: Azithromycin 500 MG in Sodium Chloride 0.9% 250 ML 250 ML IVPB SCH (18:00)
[2020-12-08] MEDS: Mometasone Furoate 30 PUFF 220 MCG INH SCH (18:45)
[2020-12-09 04:54] LABS: Anion Gap 16 mmol/L (10-20); BUN (Urea Nitrogen) 36 mg/dL (9.8-20.1); Calc. Creatinine Clearance 63 mL/min (70-130); Calcium 8.5 mg/dL (7.8-10.44); Carbon Dioxide 19 mmol/L (23-31); Chloride 110 mmol/L (98-107); Glucose 100 mg/dL (80-115); Potassium 4.8 mmol/L (3.5-5.1); Sodium 140 mmol/L (136-145)
[2020-12-09] MEDS: Lactated Ringer's 1,000 ML IV SCH ×3 (04:56→23:28)
[2020-12-09] MEDS: traMADol HCl 50 MG TAB PO SCH ×3 (06:06→22:11)
[2020-12-09 07:04] LABS: Hemoglobin 8.3 g/dL (12.0-16.0); Mean Corpuscular HGB CONC 31.4 g/dL (32.0-36.0); Mean Corpuscular Hemoglobin 27.8 pg (27.0-31.0); Mean Corpuscular Volume 88.5 fL (78.0-98.0); Mean Platelet Volume 7.7 fL (7.4-10.4); Platelet Count 556 thou/uL (130-400); RBC Distribution Width 17.6 % (11.5-14.5); Red Blood Cell (RBC) Count 2.99 mill/uL (4.20-5.40); White Blood Cell (WBC) Count 23.9 thou/uL (4.8-10.8)
[2020-12-09 07:37] LABS: Band 12 % (5-11); Lymphocytes 7 % (21-51); MDiff Complete? YES; Monocytes 4 % (0-10); Neutrophil 77 % (42-75)
[2020-12-09] MEDS: Heparin 5,000 UNITS/ML VIAL SC SCH ×3 (09:34→21:29)
[2020-12-09] MEDS: Benztropine 1 MG TAB PO SCH ×2 (09:39→21:27)
[2020-12-09] MEDS: busPIRone HCl 10 MG TAB PO SCH ×3 (09:39→21:27)
[2020-12-09] MEDS: Gabapentin 300 MG CAP PO SCH ×2 (09:40→21:27)
[2020-12-09] MEDS: guaiFENesin ER 600 MG TAB PO SCH ×2 (09:41→21:28)
[2020-12-09] MEDS: Acetaminophen 325 MG TAB PO PRN ×2 (09:42→17:31)
[2020-12-09] MEDS: Loratadine 10 MG TAB PO SCH (09:42)
[2020-12-09] MEDS: Azithromycin 500 MG in Sodium Chloride 0.9% 250 ML 250 ML IVPB SCH (15:34)
[2020-12-09] MEDS: cefTRIAXone\\ROCEPHIN 2 GM in Sodium Chloride 0.9% 100 ML IVPB SCH (15:34)
[2020-12-09] MEDS: Mometasone Furoate 30 PUFF 220 MCG INH SCH (17:31)
[2020-12-10 05:13] LABS: Hemoglobin 7.9 g/dL (12.0-16.0); Mean Corpuscular HGB CONC 31.4 g/dL (32.0-36.0); Mean Corpuscular Volume 89.2 fL (78.0-98.0); Platelet Count 621 thou/uL (130-400); RBC Distribution Width 17.7 % (11.5-14.5); Red Blood Cell (RBC) Count 2.83 mill/uL (4.20-5.40); White Blood Cell (WBC) Count 20.8 thou/uL (4.8-10.8)
[2020-12-10 05:27] LABS: Anion Gap 16 mmol/L (10-20); BUN (Urea Nitrogen) 21 mg/dL (9.8-20.1); Calc. Creatinine Clearance 98 mL/min (70-130); Calcium 8.3 mg/dL (7.8-10.44); Carbon Dioxide 20 mmol/L (23-31); Chloride 108 mmol/L (98-107); Glucose 89 mg/dL (80-115); Potassium 4.9 mmol/L (3.5-5.1); Sodium 139 mmol/L (136-145)
[2020-12-10] MEDS: traMADol HCl 50 MG TAB PO SCH ×3 (05:55→22:21)
[2020-12-10 06:14] LABS: Band 3 % (5-11); Eosinophils 2 % (0-10); Lymphocytes 4 % (21-51); MDiff Complete? YES; Monocytes 6 % (0-10); Neutrophil 84 % (42-75); Platelet Morphology Comment Appears Increased; Reactive Lymphocytes 1 % (0-10); Target Cells SLIGHT = 2-5 cells (100X) (0-1/hpf)
[2020-12-10] MEDS: Lactated Ringer's 1,000 ML IV SCH (07:14)
[2020-12-10] MEDS ORDERED: Senokot S 8.6-50 MG TAB PO PRN (09:26)
[2020-12-10] MEDS ORDERED: Glycerin Adult Supp. (24 ct jar) PR SCH (09:45)
[2020-12-10] MEDS: Benztropine 1 MG TAB PO SCH ×2 (10:54→21:57)
[2020-12-10] MEDS: busPIRone HCl 10 MG TAB PO SCH ×3 (10:54→21:57)
[2020-12-10] MEDS: Loratadine 10 MG TAB PO SCH (10:55)
[2020-12-10] MEDS: guaiFENesin ER 600 MG TAB PO SCH ×2 (10:55→21:58)
[2020-12-10] MEDS: Gabapentin 300 MG CAP PO SCH ×2 (10:55→21:57)
[2020-12-10] MEDS: Acetaminophen 325 MG TAB PO PRN (10:55)
[2020-12-10] MEDS: Heparin 5,000 UNITS/ML VIAL SC SCH ×3 (10:55→21:58)
[2020-12-10] MEDS: cefTRIAXone\\ROCEPHIN 2 GM in Sodium Chloride 0.9% 100 ML IVPB SCH (15:45)
[2020-12-10] MEDS: Azithromycin 500 MG in Sodium Chloride 0.9% 250 ML 250 ML IVPB SCH (16:38)
[2020-12-10] MEDS: Dextromethorphan Polistirex 30 MG/5 ML (89 ML BOTTLE) PO PRN (22:32)
[2020-12-10] MEDS: Mometasone Furoate 30 PUFF 220 MCG INH SCH (22:38)
[2020-12-11 05:27] LABS: Hemoglobin 8.1 g/dL (12.0-16.0); Mean Corpuscular HGB CONC 31.6 g/dL (32.0-36.0); Mean Corpuscular Hemoglobin 28.1 pg (27.0-31.0); Mean Corpuscular Volume 88.9 fL (78.0-98.0); Mean Platelet Volume 7.7 fL (7.4-10.4); Platelet Count 663 thou/uL (130-400); RBC Distribution Width 18.1 % (11.5-14.5); Red Blood Cell (RBC) Count 2.88 mill/uL (4.20-5.40); White Blood Cell (WBC) Count 21.5 thou/uL (4.8-10.8)
[2020-12-11 05:44] LABS: Anion Gap 14 mmol/L (10-20); BUN (Urea Nitrogen) 14 mg/dL (9.8-20.1); Calc. Creatinine Clearance 104 mL/min (70-130); Calcium 8.2 mg/dL (7.8-10.44); Carbon Dioxide 24 mmol/L (23-31); Chloride 107 mmol/L (98-107); Glucose 90 mg/dL (80-115); Potassium 4.8 mmol/L (3.5-5.1); Sodium 140 mmol/L (136-145)
[2020-12-11 06:15] LABS: Band 7 % (5-11); Eosinophils 1 % (0-10); Lymphocytes 8 % (21-51); MDiff Complete? YES; Monocytes 5 % (0-10); Myelocyte 1 % (0-0); Neutrophil 78 % (42-75); Platelet Morphology Comment Appears Increased; Target Cells SLIGHT = 2-5 cells (100X) (0-1/hpf)
[2020-12-11] MEDS: traMADol HCl 50 MG TAB PO SCH ×3 (06:21→22:23)
[2020-12-11] MEDS: Loratadine 10 MG TAB PO SCH (10:30)
[2020-12-11] MEDS: Benztropine 1 MG TAB PO SCH ×2 (10:30→20:19)
[2020-12-11] MEDS: guaiFENesin ER 600 MG TAB PO SCH ×2 (10:30→20:18)
[2020-12-11] MEDS: busPIRone HCl 10 MG TAB PO SCH ×3 (10:30→20:20)
[2020-12-11] MEDS: Gabapentin 300 MG CAP PO SCH ×2 (10:31→20:18)
[2020-12-11] MEDS: Heparin 5,000 UNITS/ML VIAL SC SCH ×3 (10:31→20:20)
[2020-12-11] MEDS: Dextromethorphan Polistirex 30 MG/5 ML (89 ML BOTTLE) PO PRN ×2 (12:55→20:18)
[2020-12-11] MEDS: Azithromycin 500 MG in Sodium Chloride 0.9% 250 ML 250 ML IVPB SCH (15:02)
[2020-12-11] MEDS ORDERED: Glycerin Adult Supp. (24 ct jar) PR SCH (17:00)
[2020-12-11] MEDS: cefTRIAXone\\ROCEPHIN 2 GM in Sodium Chloride 0.9% 100 ML IVPB SCH (18:40)
[2020-12-11] MEDS: Mometasone Furoate 30 PUFF 220 MCG INH SCH ×2 (18:41→19:07)
[2020-12-12 05:13] LABS: Mean Corpuscular HGB CONC 31.1 g/dL (32.0-36.0); Mean Corpuscular Hemoglobin 27.9 pg (27.0-31.0); Mean Corpuscular Volume 89.6 fL (78.0-98.0); Mean Platelet Volume 7.9 fL (7.4-10.4); Platelet Count 677 thou/uL (130-400); RBC Distribution Width 18.1 % (11.5-14.5); Red Blood Cell (RBC) Count 2.88 mill/uL (4.20-5.40); White Blood Cell (WBC) Count 20.4 thou/uL (4.8-10.8)
[2020-12-12] MEDS: traMADol HCl 50 MG TAB PO SCH ×3 (05:16→21:01)
[2020-12-12] MEDS: Dextromethorphan Polistirex 30 MG/5 ML (89 ML BOTTLE) PO PRN ×2 (05:37→22:37)
[2020-12-12] MEDS: Gabapentin 300 MG CAP PO SCH ×3 (08:27→21:01)
[2020-12-12] MEDS: guaiFENesin ER 600 MG TAB PO SCH ×2 (08:28→21:01)
[2020-12-12] MEDS: busPIRone HCl 10 MG TAB PO SCH ×3 (08:28→21:01)
[2020-12-12] MEDS: Loratadine 10 MG TAB PO SCH (08:28)
[2020-12-12] MEDS: Benztropine 1 MG TAB PO SCH ×2 (08:28→21:00)
[2020-12-12] MEDS: Heparin 5,000 UNITS/ML VIAL SC SCH ×3 (08:29→21:03)
[2020-12-12 09:39] LABS: Band 6 % (5-11); Eosinophils 4 % (0-10); Hypochromia SLIGHT = 6-15 cells (100X) (0-5/hpf); Lymphocytes 14 % (21-51); MDiff Complete? YES; Monocytes 5 % (0-10); Neutrophil 71 % (42-75); Platelet Morphology Comment Appears Increased; Polychromasia SLIGHT = 2-3 cells (100X) (0-2/hpf); Target Cells SLIGHT = 2-5 cells (100X) (0-1/hpf)
[2020-12-12] MEDS ORDERED: Polyethylene Glycol 3350 17 GM Packet PO SCH ×2 (09:45→10:00)
[2020-12-12] MEDS: Azithromycin 500 MG in Sodium Chloride 0.9% 250 ML 250 ML IVPB SCH (15:42)
[2020-12-12] MEDS: cefTRIAXone\\ROCEPHIN 2 GM in Sodium Chloride 0.9% 100 ML IVPB SCH (16:50)
[2020-12-12] MEDS ORDERED: methylPREDNISolone Sod Succ/PF 125 MG/2 ML VIAL IVP SCH (17:30)
[2020-12-12] MEDS: Polyethylene Glycol 3350 17 GM Packet PO SCH (21:08)
[2020-12-13 05:26] LABS: #Basophils 0.1 thou/uL (0.0-0.2); #Eosinphils 0.1 thou/uL (0.0-0.7); #Lymphocytes 0.9 thou/uL (1.20-3.40); #Monocytes 0.3 thou/uL (0.11-0.59); #Neutrophils 15.3 thou/uL (1.40-6.50); %Basophils 0.6 % (0.0-1.0); %Eosinophils 0.5 % (0.0-10.0); %Lymphocytes 5.6 % (21.0-51.0); %Monocytes 1.7 % (0.0-10.0); %Neutrophils 91.6 % (42.0-75.0); Mean Corpuscular HGB CONC 30.6 g/dL (32.0-36.0); Mean Corpuscular Hemoglobin 27.2 pg (27.0-31.0); Mean Corpuscular Volume 88.9 fL (78.0-98.0); Mean Platelet Volume 7.6 fL (7.4-10.4); Platelet Count 695 thou/uL (130-400); RBC Distribution Width 18.5 % (11.5-14.5); Red Blood Cell (RBC) Count 2.95 mill/uL (4.20-5.40); White Blood Cell (WBC) Count 16.7 thou/uL (4.8-10.8)
[2020-12-13] MEDS: traMADol HCl 50 MG TAB PO SCH ×3 (06:19→21:34)
[2020-12-13] MEDS: Senokot S 8.6-50 MG TAB PO SCH ×2 (09:02→21:33)
[2020-12-13] MEDS: Gabapentin 300 MG CAP PO SCH ×3 (09:02→21:34)
[2020-12-13] MEDS: Benztropine 1 MG TAB PO SCH ×2 (09:03→21:33)
[2020-12-13] MEDS: busPIRone HCl 10 MG TAB PO SCH ×3 (09:03→21:34)
[2020-12-13] MEDS: Enoxaparin Sodium 40 MG/0.4 ML SYRINGE SC SCH (09:03)
[2020-12-13] MEDS: Loratadine 10 MG TAB PO SCH (09:03)
[2020-12-13] MEDS: Polyethylene Glycol 3350 17 GM Packet PO SCH ×2 (09:03→21:33)
[2020-12-13] MEDS: guaiFENesin ER 600 MG TAB PO SCH ×2 (09:03→21:34)
[2020-12-13 12:38] LABS: ANA Symphony (Qualitative) Negative (Negative); ANA Symphony (Quantitative) 0.2 Ratio (< 0.7 Negative); dsDNA IgG Antibody 0.7 IU/mL (<10 Negative)
[2020-12-13 13:20] LABS: CCP IgG Antibody 0.7 EliAU/mL (<7 Negative); EliA RAS New Method **** NEW METHOD ****; Rheumatoid Factor IgM Antibody Less than 0.5 IU/mL (<3.5 Negative)
[2020-12-13] MEDS: cefTRIAXone\\ROCEPHIN 2 GM in Sodium Chloride 0.9% 100 ML IVPB SCH (15:38)
[2020-12-13] MEDS ORDERED: Azithromycin 1,000 MG in Sodium Chloride 0.9% 500 ML IVPB SCH (15:45)
[2020-12-13] MEDS ORDERED: Azithromycin 500 MG in Sodium Chloride 0.9% 250 ML 250 ML IVPB SCH (16:00)
[2020-12-13] MEDS: Mometasone Furoate 30 PUFF 220 MCG INH SCH (18:31)
[2020-12-13] MEDS: Dextromethorphan Polistirex 30 MG/5 ML (89 ML BOTTLE) PO PRN (23:17)
[2020-12-14 04:31] LABS: #Eosinphils 0.1 thou/uL (0.0-0.7); #Lymphocytes 2.5 thou/uL (1.20-3.40); #Neutrophils 15.3 thou/uL (1.40-6.50); %Eosinophils 0.7 % (0.0-10.0); %Lymphocytes 13.3 % (21.0-51.0); %Monocytes 5.3 % (0.0-10.0); %Neutrophils 80.7 % (42.0-75.0); Hemoglobin 8.4 g/dL (12.0-16.0); Mean Corpuscular HGB CONC 31.4 g/dL (32.0-36.0); Mean Platelet Volume 7.7 fL (7.4-10.4); Platelet Count 710 thou/uL (130-400); RBC Distribution Width 18.7 % (11.5-14.5)
[2020-12-14] MEDS: traMADol HCl 50 MG TAB PO SCH ×2 (06:15→14:49)
[2020-12-14] MEDS ORDERED: predniSONE 20 MG TAB PO SCH (08:00)
[2020-12-14] MEDS: Azithromycin 500 MG in Sodium Chloride 0.9% 250 ML 250 ML IVPB SCH (09:10)
[2020-12-14] MEDS: Polyethylene Glycol 3350 17 GM Packet PO SCH (09:14)
[2020-12-14] MEDS: Benztropine 1 MG TAB PO SCH (09:15)
[2020-12-14] MEDS: Gabapentin 300 MG CAP PO SCH ×2 (09:16→14:49)
[2020-12-14] MEDS: Loratadine 10 MG TAB PO SCH (09:16)
[2020-12-14] MEDS: Senokot S 8.6-50 MG TAB PO SCH (09:16)
[2020-12-14] MEDS: guaiFENesin ER 600 MG TAB PO SCH (09:16)
[2020-12-14] MEDS: busPIRone HCl 10 MG TAB PO SCH ×2 (09:16→14:49)
[2020-12-14] MEDS: Enoxaparin Sodium 40 MG/0.4 ML SYRINGE SC SCH (09:18)
[2020-12-14 14:14] VITALS: BP 129/62; TEMP 98.2
[2020-12-14 15:39] LABS: Cytoplasmic (C-ANCA) <1:20 titer (Neg:<1:20); Myeloperoxidase AutoAbs <9.0 U/mL (0.0-9.0); Perinuclear (P-ANCA) <1:20 titer (Neg:<1:20); Proteinase-3 AutoAbs Less than 3.5 U/mL (0.0-3.5)
[2020-12-15 00:08] LABS: QuantiFERON-TB Gold Plus Negative (Negative)
== END 2020-12-14 17:24 | disposition home or self-care (01) | DRG 871 ==
LOC: ERS 09:33 → ERHOLD 13:12 → 2SE 12-08 01:09
PROVIDERS: ADMIT Student in an Organized Health Care Education/Training Program; ATTEND Student in an Organized Health Care Education/Training Program
PROC: 8E0ZXY6 Isolation (ICD-10-PCS; principal; 2020-12-07)
DX: A41.9 Sepsis, unspecified organism (principal); J96.01 Acute respiratory failure with hypoxia; J18.9 Pneumonia, unspecified organism; N17.9 Acute kidney failure, unspecified; N39.0 Urinary tract infection, site not specified; C34.12 Malignant neoplasm of upper lobe, left bronchus or lung; J44.0 Chronic obstructive pulmonary disease with (acute) lower respiratory infection; Z20.822 Contact with and (suspected) exposure to COVID-19; I10 Essential (primary) hypertension; F20.9 Schizophrenia, unspecified; F43.10 Post-traumatic stress disorder, unspecified; F41.9 Anxiety disorder, unspecified; F31.9 Bipolar disorder, unspecified; F17.210 Nicotine dependence, cigarettes, uncomplicated; K21.9 Gastro-esophageal reflux disease without esophagitis; K29.50 Unspecified chronic gastritis without bleeding; R65.20 Severe sepsis without septic shock; K46.9 Unspecified abdominal hernia without obstruction or gangrene; K44.9 Diaphragmatic hernia without obstruction or gangrene; D47.3 Essential (hemorrhagic) thrombocythemia; D64.9 Anemia, unspecified; I77.6 Arteritis, unspecified; K59.00 Constipation, unspecified; Z90.49 Acquired absence of other specified parts of digestive tract; Z90.89 Acquired absence of other organs; Z79.899 Other long term (current) drug therapy
CPT/HCPCS: 36415; 36416; 71045; 71250; 80048; 80053; 81003; 81015; 82550; 83520; 83605; 83690; 83880; 84145; 84484; 85025; 85060; 85652; 86038; 86200; 86225; 86256; 86480; 87040; 87086; 87385; 87449; 87899; 93005; 94640; 96365; 96367; J0456; J0696; J1644; J1650; J2930; J3490; J7050; J7120; J7512; J7620; U0002

== ENCOUNTER 2021-01-03 08:19 | Outpatient (CLI) | payer OTHER | END 2021-01-03 08:20 | disposition home or self-care (01) | LOC: BICRAD 08:19 | PROVIDERS: ATTEND Internal Medicine Critical Care Medicine | DX: R06.00 Dyspnea, unspecified (principal); R91.8 Other nonspecific abnormal finding of lung field | CPT/HCPCS: 71046 ==

== ENCOUNTER 2021-01-18 09:20 | Outpatient (CLI) | payer OTHER | END 2021-01-18 09:21 | disposition home or self-care (01) | LOC: BICRAD 09:20 | PROVIDERS: ATTEND Nurse Practitioner Family | DX: S22.089A Unspecified fracture of T11-T12 vertebra, initial encounter for closed fracture (principal); M47.814 Spondylosis without myelopathy or radiculopathy, thoracic region; R91.8 Other nonspecific abnormal finding of lung field | CPT/HCPCS: 72072 ==

== ENCOUNTER 2021-01-26 08:48 | Outpatient (CLI) | payer MEDICAID | END 2021-01-26 08:49 | disposition home or self-care (01) | LOC: BICMAMMO 08:48 | PROVIDERS: ATTEND Student in an Organized Health Care Education/Training Program | DX: Z12.31 Encounter for screening mammogram for malignant neoplasm of breast (principal) | CPT/HCPCS: 77067 ==

== ENCOUNTER 2021-02-07 08:11 | Outpatient (CLI) | payer OTHER | END 2021-02-07 08:12 | disposition home or self-care (01) | LOC: BICMRI 08:11 | PROVIDERS: ATTEND Nurse Practitioner Family | DX: S22.080A Wedge compression fracture of T11-T12 vertebra, initial encounter for closed fracture (principal); R91.8 Other nonspecific abnormal finding of lung field | CPT/HCPCS: 72146 ==

== ENCOUNTER 2021-03-19 08:37 | Emergency (ER) | payer OTHER ==
[2021-03-19] MEDS ORDERED: Magnesium 2 GM/50 ML BAG (IN WATER) ONE (08:49)
[2021-03-19] MEDS ORDERED: Lorazepam 2 MG/ML VIAL ONE (08:49)
[2021-03-19] MEDS ORDERED: Dexamethasone 10 MG/ML VIAL ONE (08:49)
[2021-03-19] MEDS ORDERED: Metoclopramide HCl 10 MG/2 ML VIAL ONE (08:49)
[2021-03-19] MEDS ORDERED: Albuterol Sulfate 2.5 mg/0.5 ml Neb ONE (08:54)
[2021-03-19] MEDS ORDERED: Albuterol Sulfate 2.5 mg/3 ml Neb ONE (08:54)
[2021-03-19 09:08] LABS: Actual Bicarbonate (HCO3a) 22.7 mEq/L (22-28); Analyzer IN Cardio ER; Base Excess (BEa) -2.8 mEq/L (-2.0 to +3.0); Calcium, Ionized (arterial) 1.15 mmol/L (1.12-1.30); Carboxyhemoglobin (COHb) 1.4 gm% (0.0-3.0); Hemoglobin (Hb) 13.9 g/dL (12.0-16.0); O2 Tension (PaO2), arterial 74.1 mmHg (> 80.0); Potassium - ABG Lab 3.81 mmol/L (3.70-5.30); pH, Arterial 7.35 (7.35-7.45)
[2021-03-19 09:12] LABS: Puncture Site RRA
[2021-03-19 09:52] LABS: #Lymphocytes 0.6 thou/uL (1.20-3.40); #Monocytes 0.4 thou/uL (0.11-0.59); #Neutrophils 4.4 thou/uL (1.40-6.50); %Eosinophils 0.2 % (0.0-10.0); %Lymphocytes 10.7 % (21.0-51.0); %Monocytes 6.7 % (0.0-10.0); %Neutrophils 82.4 % (42.0-75.0); Hemoglobin 13.4 g/dL (12.0-16.0); Mean Corpuscular HGB CONC 30.5 g/dL (32.0-36.0); Mean Corpuscular Hemoglobin 25.8 pg (27.0-31.0); Mean Corpuscular Volume 84.5 fL (78.0-98.0); Mean Platelet Volume 9.7 fL (7.4-10.4); Platelet Count 211 thou/uL (130-400); RBC Distribution Width 19.2 % (11.5-14.5); Red Blood Cell (RBC) Count 5.18 mill/uL (4.20-5.40); White Blood Cell (WBC) Count 5.4 thou/uL (4.8-10.8)
[2021-03-19 09:57] LABS: ALT (SGPT) 23 U/L (8-55); AST (SGOT) 32 U/L (5-34); Albumin 3.7 g/dL (3.4-4.8); Alkaline Phosphatase 117 U/L (40-110); Anion Gap 14 mmol/L (10-20); BUN (Urea Nitrogen) 20 mg/dL (9.8-20.1); Bilirubin, Total 0.3 mg/dL (0.2-1.2); CK (CPK) 78 U/L (29-168); Calc. Creatinine Clearance 0 mL/min (70-130); Calcium 9.1 mg/dL (7.8-10.44); Carbon Dioxide 23 mmol/L (23-31); Chloride 101 mmol/L (98-107); Globulin 3.6 g/dL (2.4-3.5); Glucose 114 mg/dL (80-115); Lipase 21 U/L (8-78); Potassium 3.9 mmol/L (3.5-5.1); Protein, Total 7.3 g/dL (5.8-8.1); Sodium 134 mmol/L (136-145)
== END 2021-03-19 11:46 | disposition home or self-care (01) ==
LOC: ERS 08:37
DX: J44.1 Chronic obstructive pulmonary disease with (acute) exacerbation (principal); I10 Essential (primary) hypertension; F17.210 Nicotine dependence, cigarettes, uncomplicated; Z79.899 Other long term (current) drug therapy
CPT/HCPCS: 36600; 71045; 80053; 82550; 82805; 83690; 83880; 84484; 85025; 93005; 94644; J1100; J2060; J2765; J3475; J7611; J7620

== ENCOUNTER 2021-03-20 10:16 | Inpatient (IN) | payer OTHER ==
[2021-03-20] MEDS ORDERED: methylPREDNISolone Sod Succ/PF 125 MG/2 ML VIAL ONE (11:51)
[2021-03-20] MEDS ORDERED: Magnesium 2 GM/50 ML BAG (IN WATER) ONE (11:51)
[2021-03-20 12:00] LABS: #Lymphocytes 0.8 thou/uL (1.20-3.40); #Monocytes 0.5 thou/uL (0.11-0.59); %Basophils 0.2 % (0.0-1.0); %Eosinophils 0.1 % (0.0-10.0); %Monocytes 5.7 % (0.0-10.0); Hemoglobin 14.2 g/dL (12.0-16.0); Mean Corpuscular HGB CONC 30.7 g/dL (32.0-36.0); Mean Corpuscular Hemoglobin 25.8 pg (27.0-31.0); Mean Corpuscular Volume 84.1 fL (78.0-98.0); Platelet Count 223 thou/uL (130-400); RBC Distribution Width 19.1 % (11.5-14.5); Red Blood Cell (RBC) Count 5.51 mill/uL (4.20-5.40); White Blood Cell (WBC) Count 8.3 thou/uL (4.8-10.8)
[2021-03-20 12:01] LABS: Bacteria/HPF 1+ HPF (None Seen); Bilirubin 1+ (Negative); Blood, Urine Negative (Negative); Calcium Oxalate Crystals 4+ HPF (None Seen); Clarity Turbid (Clear); Glucose, Urine (Dipstick) Normal (Negative); Ketone, Urine Trace mg/dL (Negative); Leukocyte Negative Leu/uL (Negative); Nitrite Negative (Negative); Protein, Urine (Dipstick) 30 mg/dL (Neg-Trace); RBC/HPF 0-3 HPF (0-3); Specific Gravity, Urine 1.032 (1.002-1.036); WBC/HPF 0-3 HPF (0-3)
[2021-03-20 12:15] LABS: Amphetamine Not Detected (NotDetected); Barbiturates Screen Not Detected (NotDetected); Benzodiazepine Screen Not Detected (NotDetected); Cocaine Metabolite Screen Not Detected (NotDetected); Methadone Not Detected (NotDetected); Methamphetamine Not Detected (NotDetected); Opiate Screen Not Detected (NotDetected); Oxycodone Screen Not Detected (NotDetected); Phencyclidine (PCP) Not Detected (NotDetected); THC/Cannabinoid Screen Not Detected (NotDetected); Tricyclic Screen Detected (NotDetected)
[2021-03-20 12:21] LABS: ALT (SGPT) 22 U/L (8-55); AST (SGOT) 35 U/L (5-34); Albumin 3.9 g/dL (3.4-4.8); Alcohol Less than 10 mg/dL (Less than 10); Alkaline Phosphatase 115 U/L (40-110); Anion Gap 15 mmol/L (10-20); BUN (Urea Nitrogen) 24 mg/dL (9.8-20.1); Bilirubin, Total 0.5 mg/dL (0.2-1.2); Calc. Creatinine Clearance 0 mL/min (70-130); Calcium 8.7 mg/dL (7.8-10.44); Carbon Dioxide 22 mmol/L (23-31); Chloride 105 mmol/L (98-107); Globulin 3.3 g/dL (2.4-3.5); Glucose 108 mg/dL (80-115); Potassium 3.7 mmol/L (3.5-5.1); Protein, Total 7.2 g/dL (5.8-8.1); Sodium 138 mmol/L (136-145)
[2021-03-20 12:22] LABS: Acetaminophen Less than 6.0 mcg/mL (10.0-30.0); Alcohol Less than 10 mg/dL (Less than 10); Salicylate Less than 8.0 mg/dL (15.0-30.0)
[2021-03-20 14:18] LABS: SARS-CoV-2 NAA Rapid Test Not Detected (NotDetected)
[2021-03-20] MEDS ORDERED: Ondansetron ODT 4 MG TAB PO PRN (15:00)
[2021-03-20] MEDS ORDERED: Acetaminophen 650 MG Suppository PR PRN (15:00)
[2021-03-20] MEDS ORDERED: Ondansetron PF 4 MG/2 ML Vial IVP PRN (15:00)
[2021-03-20] MEDS ORDERED: Acetaminophen 325 MG TAB PO PRN (15:00)
[2021-03-20] MEDS ORDERED: Albuterol 200 PUFF (6.7GM INHALER) INH PRN (16:08)
[2021-03-20 16:50] VITALS: BMI 33.0
[2021-03-20] MEDS ORDERED: Dextromethorphan Polistirex 30 MG/5 ML (89 ML BOTTLE) PO PRN (17:00)
[2021-03-20] MEDS: Nicotine 14 MG PATCH TD SCH (17:39)
[2021-03-20] MEDS: Azithromycin 200 MG/5 ML Oral Suspension PO SCH (17:39)
[2021-03-20] MEDS: Mometasone 100 MCG/PUFF (1 INHALER) INH SCH (18:36)
[2021-03-20] MEDS: busPIRone HCl 10 MG TAB PO SCH (21:36)
[2021-03-20] MEDS: Benztropine 1 MG TAB PO SCH (21:37)
[2021-03-20] MEDS: guaiFENesin ER 600 MG TAB PO SCH (21:37)
[2021-03-20] MEDS: Gabapentin 300 MG CAP PO SCH (21:37)
[2021-03-20] MEDS: Oseltamivir 75 MG CAP PO SCH (21:38)
[2021-03-21] MEDS: Gabapentin 300 MG CAP PO SCH ×3 (09:34→21:23)
[2021-03-21] MEDS: predniSONE 20 MG TAB PO SCH (09:35)
[2021-03-21] MEDS: Loratadine 10 MG TAB PO SCH (09:36)
[2021-03-21] MEDS: guaiFENesin ER 600 MG TAB PO SCH ×2 (09:36→21:24)
[2021-03-21] MEDS: Oseltamivir 75 MG CAP PO SCH ×2 (09:36→21:25)
[2021-03-21] MEDS: busPIRone HCl 10 MG TAB PO SCH ×3 (09:36→21:26)
[2021-03-21] MEDS: Benztropine 1 MG TAB PO SCH ×2 (09:36→21:26)
[2021-03-21] MEDS: Enoxaparin Sodium 40 MG/0.4 ML SYRINGE SC SCH (09:37)
[2021-03-21] MEDS: Mometasone 100 MCG/PUFF (1 INHALER) INH SCH ×2 (09:40→23:09)
[2021-03-21] MEDS: traMADol HCl 50 MG TAB PO SCH ×2 (13:41→21:21)
[2021-03-21] MEDS: Nicotine 14 MG PATCH TD SCH (17:14)
[2021-03-21] MEDS: Azithromycin 200 MG/5 ML Oral Suspension PO SCH (17:45)
[2021-03-22] MEDS: traMADol HCl 50 MG TAB PO SCH ×3 (05:41→20:36)
[2021-03-22] MEDS: Mometasone 100 MCG/PUFF (1 INHALER) INH SCH ×2 (07:52→20:13)
[2021-03-22] MEDS: predniSONE 20 MG TAB PO SCH (08:20)
[2021-03-22] MEDS: Gabapentin 300 MG CAP PO SCH ×3 (08:21→20:34)
[2021-03-22] MEDS: busPIRone HCl 10 MG TAB PO SCH ×3 (08:21→20:34)
[2021-03-22] MEDS: Oseltamivir 75 MG CAP PO SCH (08:21)
[2021-03-22] MEDS: guaiFENesin ER 600 MG TAB PO SCH ×2 (08:23→20:35)
[2021-03-22] MEDS: Loratadine 10 MG TAB PO SCH (08:23)
[2021-03-22] MEDS: Benztropine 1 MG TAB PO SCH ×2 (08:23→20:36)
[2021-03-22] MEDS: Enoxaparin Sodium 40 MG/0.4 ML SYRINGE SC SCH (08:24)
[2021-03-22] MEDS ORDERED: Albuterol Sulfate 2.5 mg/3 ml Neb NEB PRN (11:15)
[2021-03-22] MEDS ORDERED: Azithromycin 200 MG/5 ML Oral Suspension PO SCH (12:45)
[2021-03-22] MEDS: Nicotine 14 MG PATCH TD SCH (17:33)
[2021-03-23] MEDS: traMADol HCl 50 MG TAB PO SCH ×3 (05:24→21:12)
[2021-03-23] MEDS: Mometasone 100 MCG/PUFF (1 INHALER) INH SCH ×2 (07:18→19:15)
[2021-03-23] MEDS: Benztropine 1 MG TAB PO SCH ×2 (08:06→21:11)
[2021-03-23] MEDS: Gabapentin 300 MG CAP PO SCH ×3 (08:07→21:12)
[2021-03-23] MEDS: predniSONE 20 MG TAB PO SCH (08:07)
[2021-03-23] MEDS: busPIRone HCl 10 MG TAB PO SCH ×3 (08:07→21:12)
[2021-03-23] MEDS: guaiFENesin ER 600 MG TAB PO SCH ×2 (08:07→21:12)
[2021-03-23] MEDS: Loratadine 10 MG TAB PO SCH (08:07)
[2021-03-23] MEDS: Enoxaparin Sodium 40 MG/0.4 ML SYRINGE SC SCH (08:08)
[2021-03-23] MEDS: Nicotine 14 MG PATCH TD SCH (15:19)
[2021-03-24] MEDS: traMADol HCl 50 MG TAB PO SCH ×2 (05:51→14:24)
[2021-03-24] MEDS ORDERED: Benzonatate 100 MG CAP PO PRN (07:37)
[2021-03-24] MEDS: Benztropine 1 MG TAB PO SCH (08:50)
[2021-03-24] MEDS: Loratadine 10 MG TAB PO SCH (08:51)
[2021-03-24] MEDS: Gabapentin 300 MG CAP PO SCH ×2 (08:51→14:25)
[2021-03-24] MEDS: predniSONE 20 MG TAB PO SCH (08:51)
[2021-03-24] MEDS: guaiFENesin ER 600 MG TAB PO SCH (08:51)
[2021-03-24] MEDS: busPIRone HCl 10 MG TAB PO SCH ×2 (08:51→14:24)
[2021-03-24] MEDS: Enoxaparin Sodium 40 MG/0.4 ML SYRINGE SC SCH (08:56)
[2021-03-24] MEDS: Mometasone 100 MCG/PUFF (1 INHALER) INH SCH (08:57)
[2021-03-24 12:16] VITALS: BP 145/85; TEMP 98.5
[2021-03-24] MEDS: Nicotine 14 MG PATCH TD SCH (14:31)
== END 2021-03-24 15:15 | disposition home or self-care (01) | DRG 194 ==
LOC: ERS 10:16 → ERHOLD 13:24 → T4-B 16:10
PROVIDERS: ADMIT Family Medicine; ATTEND Family Medicine
DX: J10.1 Influenza due to other identified influenza virus with other respiratory manifestations (principal); J44.1 Chronic obstructive pulmonary disease with (acute) exacerbation; I10 Essential (primary) hypertension; F41.1 Generalized anxiety disorder; F17.210 Nicotine dependence, cigarettes, uncomplicated; F31.9 Bipolar disorder, unspecified; G89.29 Other chronic pain; M54.9 Dorsalgia, unspecified; Z66 Do not resuscitate; E11.9 Type 2 diabetes mellitus without complications; Z20.822 Contact with and (suspected) exposure to COVID-19; F43.10 Post-traumatic stress disorder, unspecified; K21.9 Gastro-esophageal reflux disease without esophagitis; Z88.6 Allergy status to analgesic agent; Z79.899 Other long term (current) drug therapy; Z90.49 Acquired absence of other specified parts of digestive tract; Z90.89 Acquired absence of other organs
CPT/HCPCS: 0240U; 36600; 71045; 80053; 80306; 80307; 81003; 81015; 82550; 82805; 83690; 83880; 84145; 84484; 85025; 93005; 94640; 94644; 96365; 96375; J1100; J1650; J2060; J2765; J2930; J3475; J7512; J7611; J7620

== ENCOUNTER 2021-04-05 10:44 | Outpatient (CLI) | payer OTHER | END 2021-04-05 10:45 | disposition home or self-care (01) | LOC: BICRAD 10:44 | PROVIDERS: ATTEND Nurse Practitioner Family | DX: M48.54XA Collapsed vertebra, not elsewhere classified, thoracic region, initial encounter for fracture (principal); M47.26 Other spondylosis with radiculopathy, lumbar region | CPT/HCPCS: 72072; 72100 ==

== ENCOUNTER 2021-04-20 10:07 | Outpatient (CLI) | payer OTHER | END 2021-04-20 10:08 | disposition home or self-care (01) | LOC: RAD 10:07 | PROVIDERS: ATTEND Internal Medicine Critical Care Medicine | DX: R06.00 Dyspnea, unspecified (principal); K44.9 Diaphragmatic hernia without obstruction or gangrene | CPT/HCPCS: 71046 ==

== ENCOUNTER 2021-05-28 08:56 | Emergency (ER) | payer OTHER ==
[2021-05-28 10:01] LABS: #Basophils 0.1 thou/uL (0.0-0.2); #Eosinphils 0.2 thou/uL (0.0-0.7); #Lymphocytes 2.5 thou/uL (1.20-3.40); #Monocytes 0.7 thou/uL (0.11-0.59); #Neutrophils 7.4 thou/uL (1.40-6.50); %Basophils 0.8 % (0.0-1.0); %Eosinophils 2.1 % (0.0-10.0); %Lymphocytes 23.1 % (21.0-51.0); %Monocytes 6.5 % (0.0-10.0); %Neutrophils 67.7 % (42.0-75.0); Hemoglobin 11.8 g/dL (12.0-16.0); Mean Corpuscular HGB CONC 32.7 g/dL (32.0-36.0); Mean Corpuscular Hemoglobin 28.8 pg (27.0-31.0); Mean Corpuscular Volume 88.2 fL (78.0-98.0); Platelet Count 589 thou/uL (130-400); RBC Distribution Width 23.1 % (11.5-14.5); Red Blood Cell (RBC) Count 4.09 mill/uL (4.20-5.40); White Blood Cell (WBC) Count 10.9 thou/uL (4.8-10.8)
[2021-05-28 10:20] LABS: Anisocytosis SLIGHT = 6-15 cells (100X) (0-5/hpf); Hypochromia SLIGHT = 6-15 cells (100X) (0-5/hpf); MDiff Complete? YES; Platelet Morphology Comment Appears Increased; Polychromasia MODERATE = 3-4 cells (100X) (0-2/hpf); Stomatocytes MODERATE= 6-15 cells (100X) (0-1/hpf); Target Cells SLIGHT = 2-5 cells (100X) (0-1/hpf); Tear Drops SLIGHT = 2-5 cells (100X) (0-1/hpf)
[2021-05-28 10:23] LABS: ALT (SGPT) 7 U/L (8-55); AST (SGOT) 6 U/L (5-34); Albumin 3.5 g/dL (3.4-4.8); Alkaline Phosphatase 80 U/L (40-110); Anion Gap 14 mmol/L (10-20); BUN (Urea Nitrogen) 11 mg/dL (9.8-20.1); Bilirubin, Total 0.3 mg/dL (0.2-1.2); Calc. Creatinine Clearance 0 mL/min (70-130); Calcium 8.4 mg/dL (7.8-10.44); Carbon Dioxide 22 mmol/L (23-31); Chloride 105 mmol/L (98-107); Globulin 2.7 g/dL (2.4-3.5); Glucose 94 mg/dL (80-115); Potassium 3.8 mmol/L (3.5-5.1); Protein, Total 6.2 g/dL (5.8-8.1); Sodium 137 mmol/L (136-145)
[2021-05-28 14:41] LABS: Troponin I 0.013 ng/mL (< 0.028)
[2021-05-28] MEDS ORDERED: predniSONE 20 MG TAB ONE (16:46)
[2021-05-28 20:48] LABS: SARS-CoV-2 PCR by NAA Not Detected (NotDetected)
== END 2021-05-28 17:01 | disposition home or self-care (01) ==
LOC: ERS 08:56
DX: J18.9 Pneumonia, unspecified organism (principal); Z20.822 Contact with and (suspected) exposure to COVID-19; I10 Essential (primary) hypertension; J44.9 Chronic obstructive pulmonary disease, unspecified; F17.210 Nicotine dependence, cigarettes, uncomplicated; Z79.899 Other long term (current) drug therapy
CPT/HCPCS: 36415; 71045; 71275; 80053; 84484; 85025; 85379; 87804; 93005; J7512; U0003; U0005

== ENCOUNTER 2021-05-30 14:19 | Inpatient (IN) | payer OTHER ==
[~2021-05-30 14:19] MED LIST: Iopamidol-370 76% 500 ML 1 ML ONE
[2021-05-30 16:59] LABS: Hemoglobin 11.3 g/dL (12.0-16.0); Mean Corpuscular HGB CONC 30.7 g/dL (32.0-36.0); Mean Corpuscular Hemoglobin 27.5 pg (27.0-31.0); Mean Corpuscular Volume 89.9 fL (78.0-98.0); Platelet Count 523 thou/uL (130-400); RBC Distribution Width 23.2 % (11.5-14.5); Red Blood Cell (RBC) Count 4.11 mill/uL (4.20-5.40); White Blood Cell (WBC) Count 18.2 thou/uL (4.8-10.8)
[2021-05-30 17:09] LABS: ALT (SGPT) Less than 7 U/L (8-55); AST (SGOT) 8 U/L (5-34); Albumin 2.8 g/dL (3.4-4.8); Alkaline Phosphatase 69 U/L (40-110); Anion Gap 13 mmol/L (10-20); BUN (Urea Nitrogen) 14 mg/dL (9.8-20.1); Bilirubin, Total 0.3 mg/dL (0.2-1.2); Calc. Creatinine Clearance 0 mL/min (70-130); Calcium 8.3 mg/dL (7.8-10.44); Carbon Dioxide 20 mmol/L (23-31); Chloride 103 mmol/L (98-107); Globulin 2.8 g/dL (2.4-3.5); Glucose 90 mg/dL (80-115); Lipase 442 U/L (8-78); Potassium 3.6 mmol/L (3.5-5.1); Protein, Total 5.6 g/dL (5.8-8.1); Sodium 132 mmol/L (136-145)
[2021-05-30] MEDS ORDERED: Ondansetron PF 4 MG/2 ML Vial ONE (17:21)
[2021-05-30] MEDS ORDERED: Morphine 4 MG/ML VIAL ONE (17:21)
[2021-05-30 17:22] LABS: Anisocytosis SLIGHT = 6-15 cells (100X) (0-5/hpf); Band 4 % (5-11); Hypochromia SLIGHT = 6-15 cells (100X) (0-5/hpf); Lymphocytes 12 % (21-51); MDiff Complete? YES; Monocytes 3 % (0-10); Neutrophil 79 % (42-75); Platelet Morphology Comment Appears Increased; Polychromasia SLIGHT = 2-3 cells (100X) (0-2/hpf); Reactive Lymphocytes 2 % (0-10); Target Cells SLIGHT = 2-5 cells (100X) (0-1/hpf)
[2021-05-30] MEDS ORDERED: Azithromycin 500 MG VIAL ONE (17:42)
[2021-05-30] MEDS ORDERED: cefTRIAXone\\ROCEPHIN 1 GM VIAL ONE (17:42)
[2021-05-30 18:06] LABS: Bilirubin Negative (Negative); Blood, Urine Negative (Negative); Clarity Clear (Clear); Glucose, Urine (Dipstick) Normal (Negative); Ketone, Urine Negative (Negative); Leukocyte Negative Leu/uL (Negative); Nitrite Negative (Negative); Protein, Urine (Dipstick) 10 mg/dL (Neg-Trace); Urobilinogen Normal mg/dL (Less than 2)
[2021-05-30 18:07] LABS: Specific Gravity, Urine 1.053 (1.002-1.036)
[2021-05-30] MEDS ORDERED: Fentanyl 100 MCG/2 ML VIAL ONE (18:53)
[2021-05-30 19:25] LABS: Amphetamine Not Detected (NotDetected); Barbiturates Screen Not Detected (NotDetected); Benzodiazepine Screen Not Detected (NotDetected); Cocaine Metabolite Screen Not Detected (NotDetected); Methadone Not Detected (NotDetected); Methamphetamine Not Detected (NotDetected); Opiate Screen Not Detected (NotDetected); Oxycodone Screen Not Detected (NotDetected); Phencyclidine (PCP) Not Detected (NotDetected); THC/Cannabinoid Screen Not Detected (NotDetected); Tricyclic Screen Detected (NotDetected)
[2021-05-30] MEDS ORDERED: Sodium Chloride 0.9% 1,000 ML IV SCH (19:45)
[2021-05-30] MEDS: Lactated Ringer's 1,000 ML IV SCH (20:49)
[2021-05-30] MEDS ORDERED: Morphine 4 MG/ML VIAL SLOW IVP PRN (21:27)
[2021-05-30] MEDS ORDERED: diphenhydrAMINE 12.5 MG in Sodium Chloride 0.9% 50 ML IVPB PRN (21:29)
[2021-05-30] MEDS ORDERED: Fentanyl 100 MCG/2 ML VIAL SLOW IVP SCH (22:15)
[2021-05-30] MEDS ORDERED: diphenhydrAMINE 50 MG/ML VIAL IVP SCH ×3 (22:15→22:35)
[2021-05-31] MEDS ORDERED: Fentanyl 100 MCG/2 ML VIAL SLOW IVP PRN ×2 (01:17→06:00)
[2021-05-31] MEDS: Lactated Ringer's 1,000 ML IV SCH ×5 (02:06→22:51)
[2021-05-31] MEDS ORDERED: Albuterol Sulfate 2.5 mg/3 ml Neb NEB PRN (02:26)
[2021-05-31] MEDS ORDERED: diphenhydrAMINE 50 MG/ML VIAL IVP SCH (03:45)
[2021-05-31] MEDS ORDERED: Fentanyl 100 MCG/2 ML VIAL SLOW IVP SCH (03:45)
[2021-05-31] MEDS: diphenhydrAMINE 50 MG/ML VIAL IVP SCH ×3 (04:06→08:00)
[2021-05-31 06:57] LABS: #Eosinphils 0.1 thou/uL (0.0-0.7); #Lymphocytes 1.4 thou/uL (1.20-3.40); #Monocytes 0.5 thou/uL (0.11-0.59); #Neutrophils 14.2 thou/uL (1.40-6.50); %Basophils 0.1 % (0.0-1.0); %Eosinophils 0.5 % (0.0-10.0); %Lymphocytes 8.7 % (21.0-51.0); %Monocytes 2.9 % (0.0-10.0); %Neutrophils 87.9 % (42.0-75.0); Hemoglobin 11.1 g/dL (12.0-16.0); Mean Corpuscular HGB CONC 30.5 g/dL (32.0-36.0); Mean Corpuscular Hemoglobin 27.6 pg (27.0-31.0); Mean Corpuscular Volume 90.6 fL (78.0-98.0); Platelet Count 482 thou/uL (130-400); RBC Distribution Width 23.5 % (11.5-14.5); Red Blood Cell (RBC) Count 4.03 mill/uL (4.20-5.40); White Blood Cell (WBC) Count 16.2 thou/uL (4.8-10.8)
[2021-05-31 07:02] LABS: Hemoglobin A1c 5.6 % (4.0-6.0)
[2021-05-31 07:13] LABS: ALT (SGPT) Less than 7 U/L (8-55); AST (SGOT) 10 U/L (5-34); Albumin 2.9 g/dL (3.4-4.8); Alkaline Phosphatase 75 U/L (40-110); Anion Gap 11 mmol/L (10-20); BUN (Urea Nitrogen) 11 mg/dL (9.8-20.1); Bilirubin, Total 0.4 mg/dL (0.2-1.2); Calc. Creatinine Clearance 105 mL/min (70-130); Calcium 8.3 mg/dL (7.8-10.44); Carbon Dioxide 24 mmol/L (23-31); Cardiac Risk 3.3 (Less than 4.5); Chloride 105 mmol/L (98-107); Cholesterol 96 mg/dl (< 200 Desired); Globulin 2.6 g/dL (2.4-3.5); Glucose 94 mg/dL (80-115); HDL Cholesterol 29 mg/dL (>60 Neg Risk); LDL Cholesterol, Calculated 47 mg/dL; Protein, Total 5.5 g/dL (5.8-8.1); Sodium 136 mmol/L (136-145); Triglycerides 102 mg/dL (Less than 150)
[2021-05-31 07:24] LABS: Anisocytosis MODERATE=16-30 cells (100X) (0-5/hpf); Lymphocytes 10 % (21-51); MDiff Complete? YES; Monocytes 3 % (0-10); Neutrophil 85 % (42-75); Platelet Morphology Comment Appears Increased; Polychromasia MODERATE = 3-4 cells (100X) (0-2/hpf); Reactive Lymphocytes 2 % (0-10)
[2021-05-31] MEDS: Gabapentin 300 MG CAP PO SCH ×3 (08:00→20:21)
[2021-05-31] MEDS: Benztropine 1 MG TAB PO SCH (08:00)
[2021-05-31] MEDS: Loratadine 10 MG TAB PO SCH (08:00)
[2021-05-31] MEDS: Pantoprazole 40 MG VIAL IVP SCH (08:01)
[2021-05-31] MEDS: Enoxaparin Sodium 40 MG/0.4 ML SYRINGE SC SCH (08:02)
[2021-05-31] MEDS: Ipratropium Bromide 2.5 ml Neb NEB SCH ×3 (08:18→19:16)
[2021-05-31] MEDS ORDERED: traMADol HCl 50 MG TAB PO SCH (09:00)
[2021-05-31] MEDS ORDERED: diphenhydrAMINE 25 MG in Sodium Chloride 0.9% 50 ML IVPB PRN (11:12)
[2021-05-31] MEDS: Morphine 4 MG/ML VIAL SLOW IVP PRN ×5 (11:14→22:16)
[2021-05-31] MEDS: Ondansetron PF 4 MG/2 ML Vial IVP PRN (20:16)
[2021-06-01] MEDS: Ipratropium Bromide 2.5 ml Neb NEB SCH ×4 (01:16→19:24)
[2021-06-01] MEDS: Lactated Ringer's 1,000 ML IV SCH ×4 (01:23→17:20)
[2021-06-01] MEDS: Morphine 4 MG/ML VIAL SLOW IVP PRN ×3 (02:16→08:39)
[2021-06-01 06:10] LABS: #Eosinphils 0.2 thou/uL (0.0-0.7); #Lymphocytes 1.4 thou/uL (1.20-3.40); #Monocytes 0.6 thou/uL (0.11-0.59); #Neutrophils 13.1 thou/uL (1.40-6.50); %Basophils 0.1 % (0.0-1.0); %Eosinophils 1.1 % (0.0-10.0); %Lymphocytes 8.9 % (21.0-51.0); %Monocytes 3.7 % (0.0-10.0); %Neutrophils 86.3 % (42.0-75.0); Hemoglobin 11.4 g/dL (12.0-16.0); Mean Corpuscular HGB CONC 30.8 g/dL (32.0-36.0); Mean Platelet Volume 7.2 fL (7.4-10.4); Platelet Count 413 thou/uL (130-400); RBC Distribution Width 23.1 % (11.5-14.5); Red Blood Cell (RBC) Count 4.08 mill/uL (4.20-5.40); White Blood Cell (WBC) Count 15.2 thou/uL (4.8-10.8)
[2021-06-01 06:29] LABS: ALT (SGPT) Less than 7 U/L (8-55); AST (SGOT) 8 U/L (5-34); Albumin 2.7 g/dL (3.4-4.8); Alkaline Phosphatase 77 U/L (40-110); Anion Gap 11 mmol/L (10-20); BUN (Urea Nitrogen) 9 mg/dL (9.8-20.1); Bilirubin, Total 0.5 mg/dL (0.2-1.2); Calc. Creatinine Clearance 117 mL/min (70-130); Calcium 8.1 mg/dL (7.8-10.44); Carbon Dioxide 24 mmol/L (23-31); Chloride 104 mmol/L (98-107); Globulin 2.6 g/dL (2.4-3.5); Glucose 103 mg/dL (80-115); Potassium 3.8 mmol/L (3.5-5.1); Protein, Total 5.3 g/dL (5.8-8.1); Sodium 135 mmol/L (136-145)
[2021-06-01] MEDS: Gabapentin 300 MG CAP PO SCH ×3 (08:42→20:26)
[2021-06-01] MEDS: Loratadine 10 MG TAB PO SCH (08:42)
[2021-06-01] MEDS: busPIRone HCl 10 MG TAB PO SCH (08:42)
[2021-06-01] MEDS: Benztropine 1 MG TAB PO SCH (08:43)
[2021-06-01] MEDS: Enoxaparin Sodium 40 MG/0.4 ML SYRINGE SC SCH (08:43)
[2021-06-01] MEDS: Pantoprazole 40 MG VIAL IVP SCH (08:43)
[2021-06-01] MEDS ORDERED: Non-Formulary Item 1 EACH (Buspirone Hcl [Buspirone Hcl] 30 MG Tablet) PO SCH (09:00)
[2021-06-01] MEDS: HYDROcodone/Acetaminophen 7.5/325 mg Tablet PO SCH ×2 (11:56→16:56)
[2021-06-01] MEDS ORDERED: Magnevist 469MG/ML 20 ML VIAL ONE (12:32)
[2021-06-01] MEDS: Ondansetron PF 4 MG/2 ML Vial IVP PRN (13:22)
[2021-06-01] MEDS: HYDROcodone/Acetaminophen 5/325 mg Tablet PO SCH (20:27)
[2021-06-02] MEDS: HYDROcodone/Acetaminophen 5/325 mg Tablet PO SCH ×4 (00:07→17:31)
[2021-06-02] MEDS: Ipratropium Bromide 2.5 ml Neb NEB SCH ×3 (01:07→13:29)
[2021-06-02] MEDS: Lactated Ringer's 1,000 ML IV SCH ×4 (03:19→19:40)
[2021-06-02 06:37] LABS: ALT (SGPT) Less than 7 U/L (8-55); AST (SGOT) 7 U/L (5-34); Albumin 2.3 g/dL (3.4-4.8); Alkaline Phosphatase 74 U/L (40-110); Anion Gap 14 mmol/L (10-20); BUN (Urea Nitrogen) 9 mg/dL (9.8-20.1); Bilirubin, Total 0.5 mg/dL (0.2-1.2); Calc. Creatinine Clearance 122 mL/min (70-130); Calcium 7.7 mg/dL (7.8-10.44); Carbon Dioxide 22 mmol/L (23-31); Chloride 103 mmol/L (98-107); Globulin 2.5 g/dL (2.4-3.5); Glucose 90 mg/dL (80-115); Potassium 3.6 mmol/L (3.5-5.1); Protein, Total 4.8 g/dL (5.8-8.1); Sodium 135 mmol/L (136-145)
[2021-06-02 06:47] LABS: Hemoglobin 10.8 g/dL (12.0-16.0); Mean Corpuscular HGB CONC 30.6 g/dL (32.0-36.0); Mean Corpuscular Volume 91.4 fL (78.0-98.0); Mean Platelet Volume 7.5 fL (7.4-10.4); Platelet Count 348 thou/uL (130-400); RBC Distribution Width 23.2 % (11.5-14.5); Red Blood Cell (RBC) Count 3.87 mill/uL (4.20-5.40); White Blood Cell (WBC) Count 16.5 thou/uL (4.8-10.8)
[2021-06-02 06:48] LABS: Band 8 % (5-11); Hypochromia SLIGHT = 6-15 cells (100X) (0-5/hpf); Lymphocytes 3 % (21-51); MDiff Complete? YES; Monocytes 5 % (0-10); Neutrophil 84 % (42-75); Platelet Morphology Comment Appears Adequate
[2021-06-02] MEDS: Enoxaparin Sodium 40 MG/0.4 ML SYRINGE SC SCH (08:46)
[2021-06-02] MEDS: Gabapentin 300 MG CAP PO SCH ×3 (08:48→20:58)
[2021-06-02] MEDS: Pantoprazole 40 MG VIAL IVP SCH (08:49)
[2021-06-02] MEDS: Loratadine 10 MG TAB PO SCH (08:49)
[2021-06-02] MEDS: Benztropine 1 MG TAB PO SCH (08:49)
[2021-06-02] MEDS: busPIRone HCl 10 MG TAB PO SCH (08:49)
[2021-06-02] MEDS ORDERED: Albuterol Sulfate 1.25 MG/3 ML NEB NEB PRN (13:06)
[2021-06-02] MEDS: Morphine 4 MG/ML VIAL SLOW IVP PRN ×2 (15:06→21:00)
[2021-06-02] MEDS ORDERED: HYDROcodone/Acetaminophen 5/325 mg Tablet PO SCH (17:00)
[2021-06-02] MEDS: Ondansetron PF 4 MG/2 ML Vial IVP PRN (21:07)
[2021-06-03] MEDS: HYDROcodone/Acetaminophen 5/325 mg Tablet PO SCH ×4 (01:33→20:38)
[2021-06-03] MEDS: Lactated Ringer's 1,000 ML IV SCH ×3 (01:33→14:39)
[2021-06-03 06:56] LABS: ALT (SGPT) Less than 7 U/L (8-55); AST (SGOT) 8 U/L (5-34); Albumin 2.1 g/dL (3.4-4.8); Alkaline Phosphatase 77 U/L (40-110); Anion Gap 13 mmol/L (10-20); Anisocytosis SLIGHT = 6-15 cells (100X) (0-5/hpf); BUN (Urea Nitrogen) 12 mg/dL (9.8-20.1); Band 12 % (5-11); Bilirubin, Total 0.4 mg/dL (0.2-1.2); Calc. Creatinine Clearance 128 mL/min (70-130); Calcium 7.6 mg/dL (7.8-10.44); Carbon Dioxide 22 mmol/L (23-31); Chloride 104 mmol/L (98-107); Globulin 2.5 g/dL (2.4-3.5); Glucose 92 mg/dL (80-115); Hemoglobin 10.1 g/dL (12.0-16.0); Hypochromia MODERATE=16-30 cells (100X) (0-5/hpf); Large Platelets SLIGHT; Lipase 155 U/L (8-78); Lymphocytes 6 % (21-51); MDiff Complete? YES; Mean Corpuscular HGB CONC 30.5 g/dL (32.0-36.0); Mean Corpuscular Hemoglobin 28.2 pg (27.0-31.0); Mean Corpuscular Volume 92.4 fL (78.0-98.0); Mean Platelet Volume 7.6 fL (7.4-10.4); Monocytes 1 % (0-10); Neutrophil 81 % (42-75); Platelet Count 346 thou/uL (130-400); Platelet Morphology Comment Appears Adequate; Potassium 3.6 mmol/L (3.5-5.1); Protein, Total 4.6 g/dL (5.8-8.1); RBC Distribution Width 22.9 % (11.5-14.5); Red Blood Cell (RBC) Count 3.59 mill/uL (4.20-5.40); Sodium 135 mmol/L (136-145); White Blood Cell (WBC) Count 15.3 thou/uL (4.8-10.8)
[2021-06-03] MEDS: Benztropine 1 MG TAB PO SCH (08:25)
[2021-06-03] MEDS: busPIRone HCl 10 MG TAB PO SCH (08:27)
[2021-06-03] MEDS: Gabapentin 300 MG CAP PO SCH ×3 (08:28→20:38)
[2021-06-03] MEDS: Enoxaparin Sodium 40 MG/0.4 ML SYRINGE SC SCH (08:29)
[2021-06-03] MEDS: Loratadine 10 MG TAB PO SCH (08:30)
[2021-06-03] MEDS: Pantoprazole 40 MG VIAL IVP SCH (08:31)
[2021-06-03] MEDS ORDERED: Morphine 2 MG/ML VIAL SLOW IVP PRN (09:00)
[2021-06-03] MEDS ORDERED: Lactated Ringer's 500 ML IV SCH (12:30)
[2021-06-03] MEDS: Morphine 4 MG/ML VIAL SLOW IVP PRN (18:23)
[2021-06-03] MEDS ORDERED: Lactated Ringer's 1,000 ML IV SCH (19:45)
[2021-06-04] MEDS ORDERED: methylPREDNISolone Sod Succ 40 MG VIAL IVP SCH (01:45)
[2021-06-04] MEDS ORDERED: Furosemide 20 MG/2 ML VIAL SLOW IVP SCH (01:45)
[2021-06-04] MEDS: HYDROcodone/Acetaminophen 5/325 mg Tablet PO SCH ×3 (04:21→20:07)
[2021-06-04] MEDS: Albuterol Sulfate 2.5 mg/3 ml Neb NEB PRN ×2 (06:35→13:30)
[2021-06-04 06:51] LABS: Band 18 % (5-11); Hemoglobin 10.5 g/dL (12.0-16.0); Hypochromia SLIGHT = 6-15 cells (100X) (0-5/hpf); MDiff Complete? YES; Mean Corpuscular HGB CONC 30.5 g/dL (32.0-36.0); Mean Corpuscular Hemoglobin 28.1 pg (27.0-31.0); Mean Corpuscular Volume 92.2 fL (78.0-98.0); Mean Platelet Volume 7.5 fL (7.4-10.4); Monocytes 2 % (0-10); Neutrophil 80 % (42-75); Platelet Count 405 thou/uL (130-400); Platelet Morphology Comment Appears Adequate; RBC Distribution Width 22.7 % (11.5-14.5); Red Blood Cell (RBC) Count 3.75 mill/uL (4.20-5.40); White Blood Cell (WBC) Count 17.7 thou/uL (4.8-10.8)
[2021-06-04 06:55] LABS: ALT (SGPT) Less than 7 U/L (8-55); AST (SGOT) 10 U/L (5-34); Albumin 2.3 g/dL (3.4-4.8); Alkaline Phosphatase 95 U/L (40-110); Anion Gap 14 mmol/L (10-20); BUN (Urea Nitrogen) 13 mg/dL (9.8-20.1); Bilirubin, Total 0.5 mg/dL (0.2-1.2); Calc. Creatinine Clearance 105 mL/min (70-130); Calcium 7.9 mg/dL (7.8-10.44); Carbon Dioxide 23 mmol/L (23-31); Chloride 103 mmol/L (98-107); Globulin 2.8 g/dL (2.4-3.5); Glucose 119 mg/dL (80-115); Potassium 3.7 mmol/L (3.5-5.1); Protein, Total 5.1 g/dL (5.8-8.1); Sodium 136 mmol/L (136-145)
[2021-06-04] MEDS: busPIRone HCl 10 MG TAB PO SCH (08:06)
[2021-06-04] MEDS: Gabapentin 300 MG CAP PO SCH ×3 (08:06→20:07)
[2021-06-04] MEDS: Benztropine 1 MG TAB PO SCH (08:07)
[2021-06-04] MEDS: Loratadine 10 MG TAB PO SCH (08:08)
[2021-06-04] MEDS: Enoxaparin Sodium 40 MG/0.4 ML SYRINGE SC SCH (08:08)
[2021-06-04] MEDS: methylPREDNISolone Sod Succ 40 MG VIAL IVP SCH (08:09)
[2021-06-04] MEDS: Pantoprazole 40 MG VIAL IVP SCH (08:09)
[2021-06-04] MEDS: Morphine 4 MG/ML VIAL SLOW IVP PRN (12:31)
[2021-06-05] MEDS: Morphine 4 MG/ML VIAL SLOW IVP PRN ×2 (02:30→10:56)
[2021-06-05] MEDS: HYDROcodone/Acetaminophen 5/325 mg Tablet PO SCH ×3 (06:14→20:49)
[2021-06-05 06:51] LABS: #Basophils 0.1 thou/uL (0.0-0.2); #Lymphocytes 0.7 thou/uL (1.20-3.40); #Monocytes 0.5 thou/uL (0.11-0.59); #Neutrophils 10.3 thou/uL (1.40-6.50); %Basophils 1.1 % (0.0-1.0); %Eosinophils 0.1 % (0.0-10.0); %Lymphocytes 5.6 % (21.0-51.0); %Monocytes 4.1 % (0.0-10.0); %Neutrophils 89.1 % (42.0-75.0); Band 13 % (5-11); Hemoglobin 10.5 g/dL (12.0-16.0); Hypochromia SLIGHT = 6-15 cells (100X) (0-5/hpf); Lymphocytes 5 % (21-51); MDiff Complete? YES; Mean Corpuscular HGB CONC 30.7 g/dL (32.0-36.0); Mean Corpuscular Hemoglobin 28.6 pg (27.0-31.0); Mean Corpuscular Volume 93.2 fL (78.0-98.0); Mean Platelet Volume 7.2 fL (7.4-10.4); Monocytes 6 % (0-10); Neutrophil 76 % (42-75); Platelet Count 377 thou/uL (130-400); Platelet Morphology Comment Appears Adequate; RBC Distribution Width 22.5 % (11.5-14.5); Red Blood Cell (RBC) Count 3.67 mill/uL (4.20-5.40); White Blood Cell (WBC) Count 11.6 thou/uL (4.8-10.8)
[2021-06-05 06:53] LABS: ALT (SGPT) Less than 7 U/L (8-55); AST (SGOT) 9 U/L (5-34); Albumin 2.5 g/dL (3.4-4.8); Alkaline Phosphatase 91 U/L (40-110); Anion Gap 13 mmol/L (10-20); BUN (Urea Nitrogen) 15 mg/dL (9.8-20.1); Bilirubin, Total 0.2 mg/dL (0.2-1.2); Calc. Creatinine Clearance 115 mL/min (70-130); Calcium 8.3 mg/dL (7.8-10.44); Carbon Dioxide 25 mmol/L (23-31); Chloride 105 mmol/L (98-107); Globulin 2.8 g/dL (2.4-3.5); Glucose 122 mg/dL (80-115); Potassium 3.6 mmol/L (3.5-5.1); Protein, Total 5.3 g/dL (5.8-8.1); Sodium 139 mmol/L (136-145)
[2021-06-05] MEDS: Albuterol Sulfate 2.5 mg/3 ml Neb NEB PRN ×2 (07:11→12:46)
[2021-06-05] MEDS: Gabapentin 300 MG CAP PO SCH ×3 (08:42→20:48)
[2021-06-05] MEDS: busPIRone HCl 10 MG TAB PO SCH (08:43)
[2021-06-05] MEDS: Loratadine 10 MG TAB PO SCH (08:44)
[2021-06-05] MEDS: Benztropine 1 MG TAB PO SCH (08:44)
[2021-06-05] MEDS: Enoxaparin Sodium 40 MG/0.4 ML SYRINGE SC SCH (08:45)
[2021-06-05] MEDS: Pantoprazole 40 MG VIAL IVP SCH (08:46)
[2021-06-05] MEDS: methylPREDNISolone Sod Succ 40 MG VIAL IVP SCH (08:46)
[2021-06-05] MEDS ORDERED: Benzonatate 100 MG CAP PO SCH (11:15)
[2021-06-05] MEDS ORDERED: Furosemide 20 MG TAB PO SCH (11:15)
[2021-06-05] MEDS: Benzonatate 100 MG CAP PO SCH ×2 (14:51→20:48)
[2021-06-06] MEDS: HYDROcodone/Acetaminophen 5/325 mg Tablet PO SCH (05:08)
[2021-06-06 06:34] LABS: Hemoglobin 10.1 g/dL (12.0-16.0); Mean Corpuscular HGB CONC 30.4 g/dL (32.0-36.0); Mean Corpuscular Hemoglobin 27.9 pg (27.0-31.0); Mean Corpuscular Volume 91.9 fL (78.0-98.0); Mean Platelet Volume 7.2 fL (7.4-10.4); Platelet Count 450 thou/uL (130-400); RBC Distribution Width 22.9 % (11.5-14.5); Red Blood Cell (RBC) Count 3.62 mill/uL (4.20-5.40); White Blood Cell (WBC) Count 12.1 thou/uL (4.8-10.8)
[2021-06-06 06:43] LABS: ALT (SGPT) Less than 7 U/L (8-55); AST (SGOT) 9 U/L (5-34); Albumin 2.4 g/dL (3.4-4.8); Alkaline Phosphatase 83 U/L (40-110); Anion Gap 11 mmol/L (10-20); BUN (Urea Nitrogen) 15 mg/dL (9.8-20.1); Bilirubin, Total 0.2 mg/dL (0.2-1.2); Calc. Creatinine Clearance 115 mL/min (70-130); Calcium 7.7 mg/dL (7.8-10.44); Carbon Dioxide 27 mmol/L (23-31); Chloride 107 mmol/L (98-107); Globulin 2.6 g/dL (2.4-3.5); Glucose 113 mg/dL (80-115); Potassium 3.5 mmol/L (3.5-5.1); Sodium 141 mmol/L (136-145)
[2021-06-06 07:08] LABS: Anisocytosis MODERATE=16-30 cells (100X) (0-5/hpf); Band 9 % (5-11); Hypochromia SLIGHT = 6-15 cells (100X) (0-5/hpf); Lymphocytes 5 % (21-51); MDiff Complete? YES; Monocytes 3 % (0-10); Neutrophil 82 % (42-75); Platelet Morphology Comment Appears Increased; Polychromasia SLIGHT = 2-3 cells (100X) (0-2/hpf); Reactive Lymphocytes 1 % (0-10)
[2021-06-06] MEDS ORDERED: predniSONE 20 MG TAB PO SCH (08:00)
[2021-06-06] MEDS: busPIRone HCl 10 MG TAB PO SCH (08:27)
[2021-06-06] MEDS: Enoxaparin Sodium 40 MG/0.4 ML SYRINGE SC SCH (08:28)
[2021-06-06] MEDS: Benztropine 1 MG TAB PO SCH (08:28)
[2021-06-06] MEDS: Loratadine 10 MG TAB PO SCH (08:29)
[2021-06-06] MEDS: methylPREDNISolone Sod Succ 40 MG VIAL IVP SCH (08:29)
[2021-06-06] MEDS: Pantoprazole 40 MG VIAL IVP SCH (08:29)
[2021-06-06] MEDS: Gabapentin 300 MG CAP PO SCH ×3 (08:29→20:28)
[2021-06-06] MEDS: Benzonatate 100 MG CAP PO SCH ×3 (08:29→20:28)
[2021-06-06] MEDS ORDERED: SPIRIVA INH SCH (09:00)
[2021-06-06] MEDS ORDERED: Furosemide 40 MG/4 ML VIAL SLOW IVP SCH (11:30)
[2021-06-06] MEDS ORDERED: Potassium Chloride 20 MEQ TAB PO SCH (11:45)
[2021-06-06] MEDS ORDERED: Polyethylene Glycol 3350 17 GM Packet PO SCH (11:45)
[2021-06-06] MEDS: HYDROcodone/Acetaminophen 5/325 mg Tablet PO PRN ×2 (12:55→20:28)
[2021-06-07] MEDS: HYDROcodone/Acetaminophen 5/325 mg Tablet PO PRN (04:19)
[2021-06-07] MEDS: Senokot S 8.6-50 MG TAB PO PRN ×2 (04:19→19:41)
[2021-06-07 07:00] LABS: Mean Corpuscular HGB CONC 31.1 g/dL (32.0-36.0); Mean Corpuscular Hemoglobin 28.5 pg (27.0-31.0); Mean Corpuscular Volume 91.7 fL (78.0-98.0); Mean Platelet Volume 7.1 fL (7.4-10.4); Platelet Count 470 thou/uL (130-400); RBC Distribution Width 22.8 % (11.5-14.5); Red Blood Cell (RBC) Count 3.53 mill/uL (4.20-5.40); White Blood Cell (WBC) Count 13.2 thou/uL (4.8-10.8)
[2021-06-07 07:15] LABS: ALT (SGPT) 8 U/L (8-55); AST (SGOT) 11 U/L (5-34); Albumin 2.5 g/dL (3.4-4.8); Alkaline Phosphatase 81 U/L (40-110); Anion Gap 13 mmol/L (10-20); BUN (Urea Nitrogen) 15 mg/dL (9.8-20.1); Bilirubin, Total 0.3 mg/dL (0.2-1.2); Calc. Creatinine Clearance 119 mL/min (70-130); Calcium 7.6 mg/dL (7.8-10.44); Carbon Dioxide 27 mmol/L (23-31); Chloride 104 mmol/L (98-107); Globulin 2.6 g/dL (2.4-3.5); Glucose 93 mg/dL (80-115); Potassium 3.9 mmol/L (3.5-5.1); Protein, Total 5.1 g/dL (5.8-8.1); Sodium 140 mmol/L (136-145)
[2021-06-07 07:37] LABS: Band 8 % (5-11); Lymphocytes 12 % (21-51); MDiff Complete? YES; Metamyelocyte 1 % (0-0); Monocytes 2 % (0-10); Neutrophil 76 % (42-75); Platelet Morphology Comment Appears Increased; Polychromasia SLIGHT = 2-3 cells (100X) (0-2/hpf); Reactive Lymphocytes 1 % (0-10)
[2021-06-07] MEDS ORDERED: Ketorolac Tromethamine 30 MG/ML VIAL IVP SCH (08:00)
[2021-06-07] MEDS: Benztropine 1 MG TAB PO SCH (09:04)
[2021-06-07] MEDS: Enoxaparin Sodium 40 MG/0.4 ML SYRINGE SC SCH (09:04)
[2021-06-07] MEDS: Loratadine 10 MG TAB PO SCH (09:05)
[2021-06-07] MEDS: Benzonatate 100 MG CAP PO SCH ×3 (09:05→20:01)
[2021-06-07] MEDS: busPIRone HCl 10 MG TAB PO SCH (09:05)
[2021-06-07] MEDS: predniSONE 20 MG TAB PO SCH (09:05)
[2021-06-07] MEDS: Gabapentin 300 MG CAP PO SCH ×3 (09:06→20:01)
[2021-06-07] MEDS: Polyethylene Glycol 3350 17 GM Packet PO SCH (09:06)
[2021-06-07] MEDS: TIOTROPIUM INH SCH (09:08)
[2021-06-07] MEDS ORDERED: Iopamidol 370 76% 100 ML VIAL ONE (10:26)
[2021-06-07] MEDS ORDERED: Ketorolac Tromethamine 10 MG TAB PO SCH (12:30)
[2021-06-07] MEDS: Ondansetron PF 4 MG/2 ML Vial IVP PRN (12:57)
[2021-06-07] MEDS ORDERED: Polyethylene Glycol 3350 17 GM Packet PO SCH ×2 (13:00→17:00)
[2021-06-07] MEDS: Ketorolac Tromethamine 30 MG/ML VIAL IVP SCH ×2 (15:12→20:02)
[2021-06-08] MEDS: Ketorolac Tromethamine 30 MG/ML VIAL IVP SCH ×4 (03:21→20:52)
[2021-06-08 06:37] LABS: Hemoglobin 9.8 g/dL (12.0-16.0); Mean Corpuscular HGB CONC 30.9 g/dL (32.0-36.0); Mean Corpuscular Hemoglobin 28.6 pg (27.0-31.0); Mean Corpuscular Volume 92.6 fL (78.0-98.0); Platelet Count 441 thou/uL (130-400); RBC Distribution Width 22.7 % (11.5-14.5); Red Blood Cell (RBC) Count 3.42 mill/uL (4.20-5.40); White Blood Cell (WBC) Count 10.9 thou/uL (4.8-10.8)
[2021-06-08 06:40] LABS: ALT (SGPT) 13 U/L (8-55); AST (SGOT) 16 U/L (5-34); Albumin 2.2 g/dL (3.4-4.8); Alkaline Phosphatase 81 U/L (40-110); Anion Gap 11 mmol/L (10-20); BUN (Urea Nitrogen) 17 mg/dL (9.8-20.1); Bilirubin, Total 0.4 mg/dL (0.2-1.2); Calc. Creatinine Clearance 119 mL/min (70-130); Calcium 7.5 mg/dL (7.8-10.44); Carbon Dioxide 28 mmol/L (23-31); Chloride 103 mmol/L (98-107); Globulin 2.5 g/dL (2.4-3.5); Glucose 88 mg/dL (80-115); Lipase 273 U/L (8-78); Potassium 4.3 mmol/L (3.5-5.1); Protein, Total 4.7 g/dL (5.8-8.1); Sodium 138 mmol/L (136-145)
[2021-06-08 08:55] LABS: Anisocytosis MODERATE=16-30 cells (100X) (0-5/hpf); Band 3 % (5-11); Hypochromia SLIGHT = 6-15 cells (100X) (0-5/hpf); Lymphocytes 12 % (21-51); MDiff Complete? YES; Microcytosis SLIGHT = 6-15 cells (100X) (0-5/hpf); Monocytes 2 % (0-10); Neutrophil 83 % (42-75); Platelet Morphology Comment Appears Increased; Polychromasia SLIGHT = 2-3 cells (100X) (0-2/hpf)
[2021-06-08] MEDS ORDERED: Mineral Oil ENEMA PR SCH (09:00)
[2021-06-08] MEDS: Benzonatate 100 MG CAP PO SCH ×3 (09:25→20:51)
[2021-06-08] MEDS: Polyethylene Glycol 3350 17 GM Packet PO SCH ×3 (09:25→20:54)
[2021-06-08] MEDS: Enoxaparin Sodium 40 MG/0.4 ML SYRINGE SC SCH (09:25)
[2021-06-08] MEDS: busPIRone HCl 10 MG TAB PO SCH (09:25)
[2021-06-08] MEDS: Loratadine 10 MG TAB PO SCH (09:25)
[2021-06-08] MEDS: Benztropine 1 MG TAB PO SCH (09:25)
[2021-06-08] MEDS: Gabapentin 300 MG CAP PO SCH ×3 (09:25→20:52)
[2021-06-08] MEDS: TIOTROPIUM INH SCH (09:26)
[2021-06-08] MEDS: predniSONE 20 MG TAB PO SCH (09:26)
[2021-06-08] MEDS ORDERED: Acetaminophen 325 MG TAB PO SCH (14:30)
[2021-06-08] MEDS: Acetaminophen 325 MG TAB PO SCH ×2 (17:14→23:30)
[2021-06-09] MEDS: Ketorolac Tromethamine 30 MG/ML VIAL IVP SCH ×4 (02:45→20:56)
[2021-06-09] MEDS: Acetaminophen 325 MG TAB PO SCH ×4 (05:08→23:49)
[2021-06-09 06:48] LABS: ALT (SGPT) 12 U/L (8-55); AST (SGOT) 13 U/L (5-34); Albumin 2.3 g/dL (3.4-4.8); Alkaline Phosphatase 78 U/L (40-110); Anion Gap 11 mmol/L (10-20); BUN (Urea Nitrogen) 19 mg/dL (9.8-20.1); Bilirubin, Total 0.3 mg/dL (0.2-1.2); Calc. Creatinine Clearance 111 mL/min (70-130); Calcium 7.5 mg/dL (7.8-10.44); Carbon Dioxide 27 mmol/L (23-31); Chloride 103 mmol/L (98-107); Globulin 2.5 g/dL (2.4-3.5); Glucose 108 mg/dL (80-115); Potassium 4.4 mmol/L (3.5-5.1); Protein, Total 4.8 g/dL (5.8-8.1); Sodium 137 mmol/L (136-145)
[2021-06-09 07:05] LABS: #Lymphocytes 1.2 thou/uL (1.20-3.40); #Monocytes 0.5 thou/uL (0.11-0.59); #Neutrophils 8.1 thou/uL (1.40-6.50); %Basophils 0.1 % (0.0-1.0); %Eosinophils 0.4 % (0.0-10.0); %Lymphocytes 12.4 % (21.0-51.0); %Monocytes 5.3 % (0.0-10.0); %Neutrophils 81.7 % (42.0-75.0); Hemoglobin 9.9 g/dL (12.0-16.0); Hypochromia SLIGHT = 6-15 cells (100X) (0-5/hpf); MDiff Complete? YES; Mean Corpuscular HGB CONC 30.1 g/dL (32.0-36.0); Mean Corpuscular Volume 92.8 fL (78.0-98.0); Platelet Count 456 thou/uL (130-400); Platelet Morphology Comment Appears Increased; RBC Distribution Width 22.6 % (11.5-14.5); Red Blood Cell (RBC) Count 3.54 mill/uL (4.20-5.40); Target Cells SLIGHT = 2-5 cells (100X) (0-1/hpf); White Blood Cell (WBC) Count 9.9 thou/uL (4.8-10.8)
[2021-06-09] MEDS ORDERED: Mineral Oil ENEMA PR SCH (07:30)
[2021-06-09] MEDS: Benztropine 1 MG TAB PO SCH (09:14)
[2021-06-09] MEDS: Gabapentin 300 MG CAP PO SCH ×3 (09:14→20:55)
[2021-06-09] MEDS: Benzonatate 100 MG CAP PO SCH ×3 (09:15→20:57)
[2021-06-09] MEDS: predniSONE 20 MG TAB PO SCH (09:15)
[2021-06-09] MEDS: Loratadine 10 MG TAB PO SCH (09:15)
[2021-06-09] MEDS: busPIRone HCl 10 MG TAB PO SCH (09:15)
[2021-06-09] MEDS: Enoxaparin Sodium 40 MG/0.4 ML SYRINGE SC SCH (09:16)
[2021-06-09] MEDS: Polyethylene Glycol 3350 17 GM Packet PO SCH ×2 (09:16→21:10)
[2021-06-09] MEDS: TIOTROPIUM INH SCH (09:17)
[2021-06-09] MEDS ORDERED: Iopamidol-370 76% 500 ML 1 ML ONE (11:45)
[2021-06-09] MEDS: Lactated Ringer's 1,000 ML IV SCH ×3 (12:29→21:07)
[2021-06-09] MEDS ORDERED: GoLYTELY 4,000 ml Bottle PO SCH (16:00)
[2021-06-09 18:48] LABS: SARS-CoV-2 PCR by NAA Not Detected (NotDetected)
[2021-06-09] MEDS: Mometasone 100 MCG/Formoterol 5 MCG 120 PUFF INHALER INH SCH (19:21)
[2021-06-09] MEDS: Ondansetron PF 4 MG/2 ML Vial IVP PRN (20:57)
[2021-06-09] MEDS: Senokot S 8.6-50 MG TAB PO SCH (20:57)
[2021-06-09] MEDS: Albuterol Sulfate 2.5 mg/3 ml Neb NEB PRN (23:59)
[2021-06-10] MEDS: Ketorolac Tromethamine 30 MG/ML VIAL IVP SCH ×4 (03:27→20:21)
[2021-06-10] MEDS: Acetaminophen 325 MG TAB PO SCH ×3 (05:59→17:26)
[2021-06-10] MEDS: Lactated Ringer's 1,000 ML IV SCH ×2 (06:05→17:29)
[2021-06-10] MEDS: Mometasone 100 MCG/Formoterol 5 MCG 120 PUFF INHALER INH SCH ×2 (07:20→18:39)
[2021-06-10] MEDS: Benzonatate 100 MG CAP PO SCH ×3 (08:23→20:21)
[2021-06-10] MEDS: Enoxaparin Sodium 40 MG/0.4 ML SYRINGE SC SCH (08:23)
[2021-06-10] MEDS: Benztropine 1 MG TAB PO SCH (08:23)
[2021-06-10] MEDS: predniSONE 20 MG TAB PO SCH (08:24)
[2021-06-10] MEDS: Senokot S 8.6-50 MG TAB PO SCH ×2 (08:24→20:20)
[2021-06-10] MEDS: busPIRone HCl 10 MG TAB PO SCH (08:24)
[2021-06-10] MEDS: Polyethylene Glycol 3350 17 GM Packet PO SCH ×3 (08:25→20:47)
[2021-06-10] MEDS: Loratadine 10 MG TAB PO SCH (08:25)
[2021-06-10] MEDS: Gabapentin 300 MG CAP PO SCH ×3 (08:25→20:20)
[2021-06-10] MEDS: TIOTROPIUM INH SCH (08:33)
[2021-06-10 08:36] LABS: ALT (SGPT) 11 U/L (8-55); AST (SGOT) 14 U/L (5-34); Albumin 2.3 g/dL (3.4-4.8); Alkaline Phosphatase 76 U/L (40-110); Anion Gap 13 mmol/L (10-20); BUN (Urea Nitrogen) 18 mg/dL (9.8-20.1); Bilirubin, Total 0.4 mg/dL (0.2-1.2); Calc. Creatinine Clearance 119 mL/min (70-130); Calcium 7.4 mg/dL (7.8-10.44); Carbon Dioxide 25 mmol/L (23-31); Chloride 103 mmol/L (98-107); Globulin 2.6 g/dL (2.4-3.5); Glucose 88 mg/dL (80-115); Potassium 4.4 mmol/L (3.5-5.1); Protein, Total 4.9 g/dL (5.8-8.1); Sodium 137 mmol/L (136-145)
[2021-06-10 10:21] LABS: Anisocytosis SLIGHT = 6-15 cells (100X) (0-5/hpf); Band 33 % (5-11); Hemoglobin 10.3 g/dL (12.0-16.0); Hypochromia SLIGHT = 6-15 cells (100X) (0-5/hpf); Lymphocytes 5 % (21-51); MDiff Complete? YES; Mean Corpuscular HGB CONC 31.5 g/dL (32.0-36.0); Mean Corpuscular Hemoglobin 29.4 pg (27.0-31.0); Mean Corpuscular Volume 93.3 fL (78.0-98.0); Monocytes 5 % (0-10); Neutrophil 56 % (42-75); Platelet Count 482 thou/uL (130-400); Platelet Morphology Comment Appears Increased; Polychromasia MODERATE = 3-4 cells (100X) (0-2/hpf); RBC Distribution Width 22.7 % (11.5-14.5); Reactive Lymphocytes 1 % (0-10); Target Cells MODERATE= 6-15 cells (100X) (0-1/hpf); White Blood Cell (WBC) Count 14.4 thou/uL (4.8-10.8)
[2021-06-10] MEDS ORDERED: Mineral Oil ENEMA PR SCH (11:45)
[2021-06-10] MEDS ORDERED: VANCOMYCIN 1.75 GM/350 ML BAG 1.75 GM in Premix Bag 1 BAG IVPB SCH (15:00)
[2021-06-10] MEDS: Cefepime 2 GM in Sodium Chloride 0.9% 100 ML IVPB SCH (15:08)
[2021-06-10] MEDS ORDERED: Bisacodyl 5 MG TAB PO SCH (16:00)
[2021-06-10] MEDS: Ondansetron PF 4 MG/2 ML Vial IVP PRN (20:30)
[2021-06-11] MEDS: Acetaminophen 325 MG TAB PO SCH ×5 (00:22→19:53)
[2021-06-11] MEDS: Lactated Ringer's 1,000 ML IV SCH (02:40)
[2021-06-11] MEDS: Cefepime 2 GM in Sodium Chloride 0.9% 100 ML IVPB SCH ×2 (03:04→15:02)
[2021-06-11] MEDS: Ketorolac Tromethamine 30 MG/ML VIAL IVP SCH ×4 (03:05→20:17)
[2021-06-11] MEDS: Vancomycin 1 GM in Premix Bag 1 BAG IVPB SCH ×2 (04:27→16:02)
[2021-06-11 06:03] LABS: Hemoglobin 9.4 g/dL (12.0-16.0); Mean Corpuscular HGB CONC 31.3 g/dL (32.0-36.0); Mean Corpuscular Hemoglobin 28.5 pg (27.0-31.0); Mean Platelet Volume 6.8 fL (7.4-10.4); Platelet Count 455 thou/uL (130-400); RBC Distribution Width 22.6 % (11.5-14.5); Red Blood Cell (RBC) Count 3.28 mill/uL (4.20-5.40); White Blood Cell (WBC) Count 17.3 thou/uL (4.8-10.8)
[2021-06-11 06:20] LABS: Band 31 % (5-11); Hypochromia SLIGHT = 6-15 cells (100X) (0-5/hpf); Lymphocytes 4 % (21-51); MDiff Complete? YES; Monocytes 1 % (0-10); Neutrophil 64 % (42-75); Toxic Granulation SLIGHT; Vacuoles SLIGHT
[2021-06-11 06:31] LABS: ALT (SGPT) 11 U/L (8-55); AST (SGOT) 19 U/L (5-34); Albumin 2.1 g/dL (3.4-4.8); Alkaline Phosphatase 77 U/L (40-110); Anion Gap 13 mmol/L (10-20); BUN (Urea Nitrogen) 21 mg/dL (9.8-20.1); Bilirubin, Total 0.6 mg/dL (0.2-1.2); Calc. Creatinine Clearance 114 mL/min (70-130); Calcium 7.5 mg/dL (7.8-10.44); Carbon Dioxide 25 mmol/L (23-31); Chloride 105 mmol/L (98-107); Globulin 2.7 g/dL (2.4-3.5); Glucose 68 mg/dL (80-115); Potassium 4.2 mmol/L (3.5-5.1); Protein, Total 4.8 g/dL (5.8-8.1); Sodium 139 mmol/L (136-145)
[2021-06-11] MEDS: Mometasone 100 MCG/Formoterol 5 MCG 120 PUFF INHALER INH SCH ×2 (06:59→19:06)
[2021-06-11 07:27] LABS: Actual Bicarbonate (HCO3a) 21.7 mEq/L (22-28); Base Excess (BEa) -1.8 mEq/L (-2.0 to +3.0); CO2 Tension 32.7 mmHg (35.0-45.0); Calcium, Ionized (arterial) 1.09 mmol/L (1.12-1.30); Carboxyhemoglobin (COHb) 0.5 gm% (0.0-3.0); Hemoglobin (Hb) 10.7 g/dL (12.0-16.0); pH, Arterial 7.44 (7.35-7.45)
[2021-06-11 07:31] LABS: ALV-art Gradient 129.785 mmHg (0-20); O2 Tension (PaO2), arterial 57.5 mmHg (> 80.0); Puncture Site RRA
[2021-06-11] MEDS: Senokot S 8.6-50 MG TAB PO SCH ×2 (07:59→19:52)
[2021-06-11] MEDS: busPIRone HCl 10 MG TAB PO SCH (07:59)
[2021-06-11] MEDS: Loratadine 10 MG TAB PO SCH (08:00)
[2021-06-11] MEDS: predniSONE 20 MG TAB PO SCH (08:00)
[2021-06-11] MEDS: Gabapentin 300 MG CAP PO SCH ×3 (08:00→19:52)
[2021-06-11] MEDS: Polyethylene Glycol 3350 17 GM Packet PO SCH ×2 (08:01→19:52)
[2021-06-11] MEDS: TIOTROPIUM INH SCH (08:01)
[2021-06-11] MEDS: Enoxaparin Sodium 40 MG/0.4 ML SYRINGE SC SCH (08:01)
[2021-06-11] MEDS: Benzonatate 100 MG CAP PO SCH ×3 (08:01→19:52)
[2021-06-11] MEDS: Benztropine 1 MG TAB PO SCH (08:01)
[2021-06-11] MEDS: Ondansetron PF 4 MG/2 ML Vial IVP PRN ×2 (11:41→21:19)
[2021-06-11] MEDS ORDERED: Lorazepam 1 MG TAB PO SCH (12:00)
[2021-06-11] MEDS: Dexmedetomidine In 0.9 % NaCl 400 MCG in Premix Bag 1 BAG IVPB SCH ×2 (14:09→22:29)
[2021-06-11] MEDS: Promethazine HCl 12.5 MG in Sodium Chloride 0.9% 50 ML IVPB PRN ×2 (16:32→23:03)
[2021-06-11] MEDS ORDERED: Dicyclomine 20 MG/2 ML VIAL IM PRN (20:44)
[2021-06-12] MEDS: Ketorolac Tromethamine 30 MG/ML VIAL IVP SCH ×2 (03:36→08:36)
[2021-06-12] MEDS: Cefepime 2 GM in Sodium Chloride 0.9% 100 ML IVPB SCH (03:37)
[2021-06-12] MEDS: Acetaminophen 325 MG TAB PO SCH ×3 (03:37→18:11)
[2021-06-12] MEDS: Vancomycin 1 GM in Premix Bag 1 BAG IVPB SCH ×2 (03:37→16:48)
[2021-06-12] MEDS: Dexmedetomidine In 0.9 % NaCl 400 MCG in Premix Bag 1 BAG IVPB SCH ×2 (03:50→10:59)
[2021-06-12 04:58] LABS: Hemoglobin 8.2 g/dL (12.0-16.0); Mean Corpuscular HGB CONC 30.2 g/dL (32.0-36.0); Mean Corpuscular Hemoglobin 28.1 pg (27.0-31.0); Mean Corpuscular Volume 93.1 fL (78.0-98.0); Mean Platelet Volume 7.4 fL (7.4-10.4); Platelet Count 368 thou/uL (130-400); RBC Distribution Width 22.1 % (11.5-14.5); Red Blood Cell (RBC) Count 2.91 mill/uL (4.20-5.40); White Blood Cell (WBC) Count 14.5 thou/uL (4.8-10.8)
[2021-06-12 05:06] LABS: ALT (SGPT) 10 U/L (8-55); AST (SGOT) 18 U/L (5-34); Albumin 2.2 g/dL (3.4-4.8); Alkaline Phosphatase 88 U/L (40-110); Anion Gap 16 mmol/L (10-20); BUN (Urea Nitrogen) 28 mg/dL (9.8-20.1); Bilirubin, Total 0.4 mg/dL (0.2-1.2); Calc. Creatinine Clearance 124 mL/min (70-130); Calcium 7.8 mg/dL (7.8-10.44); Carbon Dioxide 23 mmol/L (23-31); Chloride 106 mmol/L (98-107); Globulin 2.7 g/dL (2.4-3.5); Glucose 82 mg/dL (80-115); Potassium 4.5 mmol/L (3.5-5.1); Protein, Total 4.9 g/dL (5.8-8.1); Sodium 140 mmol/L (136-145)
[2021-06-12 05:59] LABS: Anisocytosis SLIGHT = 6-15 cells (100X) (0-5/hpf); Band 23 % (5-11); Eosinophils 1 % (0-10); Lymphocytes 4 % (21-51); MDiff Complete? YES; Monocytes 2 % (0-10); Neutrophil 70 % (42-75)
[2021-06-12] MEDS: Mometasone 100 MCG/Formoterol 5 MCG 120 PUFF INHALER INH SCH ×2 (07:15→18:58)
[2021-06-12] MEDS: predniSONE 20 MG TAB PO SCH (07:34)
[2021-06-12] MEDS: Benzonatate 100 MG CAP PO SCH (08:16)
[2021-06-12] MEDS: Gabapentin 300 MG CAP PO SCH (08:17)
[2021-06-12] MEDS: busPIRone HCl 10 MG TAB PO SCH (08:17)
[2021-06-12] MEDS: Benztropine 1 MG TAB PO SCH (08:17)
[2021-06-12] MEDS: Loratadine 10 MG TAB PO SCH (08:17)
[2021-06-12] MEDS: Polyethylene Glycol 3350 17 GM Packet PO SCH (08:18)
[2021-06-12] MEDS: Senokot S 8.6-50 MG TAB PO SCH (08:18)
[2021-06-12] MEDS: Enoxaparin Sodium 40 MG/0.4 ML SYRINGE SC SCH (08:35)
[2021-06-12] MEDS: TIOTROPIUM INH SCH (08:41)
[2021-06-12] MEDS ORDERED: Lorazepam 2 MG/ML VIAL SLOW IVP PRN (09:11)
[2021-06-12] MEDS ORDERED: Morphine 4 MG/ML VIAL ONE (09:37)
[2021-06-12] MEDS ORDERED: Morphine 4 MG/ML VIAL SLOW IVP SCH (09:45)
[2021-06-12] MEDS ORDERED: Morphine 4 MG/ML VIAL SLOW IVP PRN ×2 (10:07→11:45)
[2021-06-12] MEDS ORDERED: hydrALAZINE 20 MG/ML VIAL SLOW IVP PRN (10:08)
[2021-06-12] MEDS ORDERED: Lorazepam 2 MG/ML VIAL SLOW IVP SCH (10:15)
[2021-06-12] MEDS ORDERED: Haloperidol Lactate 5 MG/ML VIAL ONE (10:35)
[2021-06-12] MEDS ORDERED: Fentanyl 100 MCG/2 ML VIAL ONE ×3 (10:36→11:03)
[2021-06-12] MEDS ORDERED: Fentanyl 100 MCG/2 ML VIAL SLOW IVP SCH ×2 (10:45→13:30)
[2021-06-12] MEDS ORDERED: Haloperidol Lactate 5 MG/ML VIAL SLOW IVP SCH (10:45)
[2021-06-12] MEDS ORDERED: Propofol 1,000 MG/100 ML VIAL IV ONE (11:01)
[2021-06-12] MEDS ORDERED: PROPOFOL 20 ML ONE (11:03)
[2021-06-12] MEDS: Propofol 1,000 MG/100 ML VIAL IV PRN ×3 (11:20→22:09)
[2021-06-12] MEDS ORDERED: Ventilator Sedation Protocol 1 EACH FS SCH (11:30)
[2021-06-12] MEDS ORDERED: Piperacillin/Tazobactam 3.375 GM in Sodium Chloride 0.9% 100 ML IVPB SCH ×2 (11:30→11:45)
[2021-06-12] MEDS ORDERED: Propofol BOLUS 1,000 MG/100 ML VIAL IV PRN (11:45)
[2021-06-12] MEDS ORDERED: Fentanyl BOLUS 250 ML IVPB PRN (11:45)
[2021-06-12] MEDS ORDERED: DISCONTINUE PREVIOUS NARCOTIC PAIN MEDICATIONS AND BENZODIAZEPINES FS SCH (11:45)
[2021-06-12] MEDS: fentaNYL Citrate-0.9 % NaCl/PF 100 ML IVPB SCH (12:01)
[2021-06-12] MEDS ORDERED: PROPOFOL 200 MG/20 ML VIAL IVP SCH (13:30)
[2021-06-12 15:44] LABS: Actual Bicarbonate (HCO3a) 14.4 mEq/L (22-28); Base Excess (BEa) -10.1 mEq/L (-2.0 to +3.0); CO2 Tension 27.2 mmHg (35.0-45.0); Calcium, Ionized (arterial) 1.15 mmol/L (1.12-1.30); Carboxyhemoglobin (COHb) 0.2 gm% (0.0-3.0); Hemoglobin (Hb) 9.9 g/dL (12.0-16.0); O2 Tension (PaO2), arterial 72.5 mmHg (> 80.0); pH, Arterial 7.34 (7.35-7.45)
[2021-06-12 15:53] LABS: Puncture Site RRA
[2021-06-12] MEDS: Piperacillin/Tazobactam 3.375 GM in Sodium Chloride 0.9% 100 ML IVPB SCH (16:48)
[2021-06-12] MEDS: Norepinephrine 8 MG/0.9% NS 250 ML IVPB PRN (18:22)
[2021-06-12] MEDS: Polyethylene Glycol 3350 17 GM Packet PER TUBE SCH (21:07)
[2021-06-12] MEDS: Senokot S 8.6-50 MG TAB PER TUBE SCH (21:07)
[2021-06-12] MEDS ORDERED: Furosemide 40 MG/4 ML VIAL SLOW IVP SCH (21:45)
[2021-06-12] MEDS ORDERED: Albumin 25% 25 GM/100 ML BOT IVPB SCH (22:00)
[2021-06-13] MEDS: Acetaminophen 325 MG TAB PO SCH ×5 (00:43→22:31)
[2021-06-13] MEDS: Piperacillin/Tazobactam 3.375 GM in Sodium Chloride 0.9% 100 ML IVPB SCH ×3 (00:43→17:06)
[2021-06-13] MEDS: Vancomycin 1 GM in Premix Bag 1 BAG IVPB SCH ×2 (04:50→15:21)
[2021-06-13] MEDS ORDERED: Lactated Ringer's 500 ML IV SCH (05:00)
[2021-06-13 05:39] LABS: Mean Corpuscular HGB CONC 31.2 g/dL (32.0-36.0); Mean Corpuscular Hemoglobin 29.3 pg (27.0-31.0); Mean Corpuscular Volume 93.7 fL (78.0-98.0); Mean Platelet Volume 7.5 fL (7.4-10.4); Platelet Count 652 thou/uL (130-400); RBC Distribution Width 23.3 % (11.5-14.5); Red Blood Cell (RBC) Count 3.75 mill/uL (4.20-5.40); White Blood Cell (WBC) Count 22.9 thou/uL (4.8-10.8)
[2021-06-13 05:45] LABS: ALT (SGPT) 7 U/L (8-55); AST (SGOT) 21 U/L (5-34); Albumin 2.5 g/dL (3.4-4.8); Alkaline Phosphatase 80 U/L (40-110); Anion Gap 20 mmol/L (10-20); BUN (Urea Nitrogen) 41 mg/dL (9.8-20.1); Band 28 % (5-11); Bilirubin, Total 0.9 mg/dL (0.2-1.2); Calc. Creatinine Clearance 63 mL/min (70-130); Calcium 7.9 mg/dL (7.8-10.44); Carbon Dioxide 18 mmol/L (23-31); Chloride 106 mmol/L (98-107); Globulin 2.5 g/dL (2.4-3.5); Glucose 102 mg/dL (80-115); Lymphocytes 7 % (21-51); MDiff Complete? YES; Magnesium 2.5 mg/dL (1.6-2.6); Monocytes 2 % (0-10); Myelocyte 3 % (0-0); Neutrophil 60 % (42-75); Platelet Morphology Comment Appears Increased; Potassium 4.6 mmol/L (3.5-5.1); Sodium 139 mmol/L (136-145)
[2021-06-13] MEDS: Propofol 1,000 MG/100 ML VIAL IV PRN ×3 (05:54→18:12)
[2021-06-13] MEDS: Norepinephrine 8 MG/0.9% NS 250 ML IVPB PRN ×2 (05:54→18:13)
[2021-06-13] MEDS: Mometasone 100 MCG/Formoterol 5 MCG 120 PUFF INHALER INH SCH ×2 (06:41→19:11)
[2021-06-13] MEDS: fentaNYL Citrate-0.9 % NaCl/PF 100 ML IVPB SCH ×2 (06:51→22:03)
[2021-06-13 06:58] LABS: Actual Bicarbonate (HCO3a) 17.4 mEq/L (22-28); CO2 Tension 35.5 mmHg (35.0-45.0); Carboxyhemoglobin (COHb) 0.3 gm% (0.0-3.0); Hemoglobin (Hb) 11.3 g/dL (12.0-16.0); O2 Tension (PaO2), arterial 85.1 mmHg (> 80.0); pH, Arterial 7.31 (7.35-7.45)
[2021-06-13 07:26] LABS: ALV-art Gradient 155.725 mmHg (0-20); Puncture Site LBA
[2021-06-13] MEDS ORDERED: Lansoprazole 3 MG/ML ORAL SUSPENSION PER TUBE SCH (09:00)
[2021-06-13] MEDS ORDERED: Pantoprazole 40 MG VIAL IVP SCH (09:00)
[2021-06-13] MEDS: Lactated Ringer's 1,000 ML IV SCH ×2 (09:04→14:04)
[2021-06-13] MEDS: Senokot S 8.6-50 MG TAB PER TUBE SCH (09:07)
[2021-06-13] MEDS: Enoxaparin Sodium 40 MG/0.4 ML SYRINGE SC SCH (09:07)
[2021-06-13] MEDS: Polyethylene Glycol 3350 17 GM Packet PER TUBE SCH ×2 (09:09→21:50)
[2021-06-13] MEDS: TIOTROPIUM INH SCH (09:10)
[2021-06-13] MEDS: Pantoprazole 40 MG VIAL IVP SCH (10:20)
[2021-06-13] MEDS ORDERED: Methylnaltrexone 12 MG/0.6 ML VIAL SC SCH (12:45)
[2021-06-13] MEDS: Methylnaltrexone 12 MG/0.6 ML VIAL SC SCH (13:29)
[2021-06-13] MEDS: Lorazepam 2 MG/ML VIAL SLOW IVP PRN ×2 (14:03→21:25)
[2021-06-13] MEDS ORDERED: Vancomycin HCl 1 MG in Premix Bag 1 BAG IVPB SCH (16:00)
[2021-06-14] MEDS: Piperacillin/Tazobactam 3.375 GM in Sodium Chloride 0.9% 100 ML IVPB SCH ×2 (00:17→08:58)
[2021-06-14] MEDS: Norepinephrine 8 MG/0.9% NS 250 ML IVPB PRN ×4 (02:15→22:47)
[2021-06-14 04:53] LABS: Hemoglobin 9.6 g/dL (12.0-16.0); Mean Corpuscular HGB CONC 30.3 g/dL (32.0-36.0); Mean Corpuscular Hemoglobin 28.4 pg (27.0-31.0); Mean Corpuscular Volume 93.6 fL (78.0-98.0); Mean Platelet Volume 7.4 fL (7.4-10.4); Platelet Count 530 thou/uL (130-400); RBC Distribution Width 22.7 % (11.5-14.5); Red Blood Cell (RBC) Count 3.37 mill/uL (4.20-5.40); White Blood Cell (WBC) Count 28.7 thou/uL (4.8-10.8)
[2021-06-14] MEDS: Propofol 1,000 MG/100 ML VIAL IV PRN ×2 (05:03→17:05)
[2021-06-14 05:26] LABS: ALT (SGPT) 8 U/L (8-55); AST (SGOT) 19 U/L (5-34); Albumin 2.1 g/dL (3.4-4.8); Alkaline Phosphatase 84 U/L (40-110); Anion Gap 19 mmol/L (10-20); BUN (Urea Nitrogen) 56 mg/dL (9.8-20.1); Calc. Creatinine Clearance 42 mL/min (70-130); Calcium 7.6 mg/dL (7.8-10.44); Carbon Dioxide 20 mmol/L (23-31); Chloride 107 mmol/L (98-107); Globulin 2.6 g/dL (2.4-3.5); Glucose 115 mg/dL (80-115); Magnesium 2.5 mg/dL (1.6-2.6); Potassium 4.8 mmol/L (3.5-5.1); Protein, Total 4.7 g/dL (5.8-8.1); Sodium 141 mmol/L (136-145)
[2021-06-14] MEDS: Acetaminophen 325 MG TAB PO SCH ×4 (06:09→19:13)
[2021-06-14] MEDS: Mometasone 100 MCG/Formoterol 5 MCG 120 PUFF INHALER INH SCH ×2 (06:42→18:25)
[2021-06-14 06:46] LABS: Anisocytosis MODERATE=16-30 cells (100X) (0-5/hpf); Band 30 % (5-11); Lymphocytes 6 % (21-51); MDiff Complete? YES; Monocytes 4 % (0-10); Myelocyte 2 % (0-0); Neutrophil 58 % (42-75); Nucleated RBC 1 % (0)
[2021-06-14 07:08] LABS: Actual Bicarbonate (HCO3a) 19.1 mEq/L (22-28); Base Excess (BEa) -7.5 mEq/L (-2.0 to +3.0); CO2 Tension 43.6 mmHg (35.0-45.0); Calcium, Ionized (arterial) 1.11 mmol/L (1.12-1.30); Carboxyhemoglobin (COHb) 0.4 gm% (0.0-3.0); O2 Tension (PaO2), arterial 83.8 mmHg (> 80.0); Potassium - ABG Lab 4.24 mmol/L (3.70-5.30); pH, Arterial 7.26 (7.35-7.45)
[2021-06-14 07:12] LABS: Puncture Site RRA
[2021-06-14 07:33] LABS: Bilirubin Negative (Negative); Blood, Urine 1+ (Negative); Clarity Turbid (Clear); Glucose, Urine (Dipstick) Normal (Negative); Ketone, Urine Negative (Negative); Leukocyte Negative Leu/uL (Negative); Nitrite Negative (Negative); Protein, Urine (Dipstick) 70 mg/dL (Neg-Trace); Specific Gravity, Urine 1.027 (1.002-1.036); Squamous Epithelial 0-3 HPF (0-3); Urobilinogen Normal mg/dL (Less than 2); WBC/HPF 0-3 HPF (0-3); pH, Urine 5.5 (5.0-9.0)
[2021-06-14 07:55] LABS: Bacteria/HPF 2+ HPF (None Seen); Creatinine, Urine 83.48 mg/dL (47-110); Yeast-Budding 1+ HPF (None Seen)
[2021-06-14 07:57] LABS: Urine Culture Reflex Yes Yes
[2021-06-14] MEDS: Enoxaparin Sodium 30 MG/0.3 ML SYRINGE SC SCH (08:57)
[2021-06-14] MEDS: Pantoprazole 40 MG VIAL IVP SCH (08:57)
[2021-06-14] MEDS: TIOTROPIUM INH SCH (09:16)
[2021-06-14] MEDS: Lorazepam 2 MG/ML VIAL SLOW IVP PRN (09:38)
[2021-06-14 09:55] LABS: Lactic Acid 1.1 mmol/L (0.5-2.2)
[2021-06-14] MEDS ORDERED: GASTROGRAFIN 30 ML BOT ONE (10:13)
[2021-06-14] MEDS ORDERED: Methylnaltrexone 12 MG/0.6 ML VIAL SC SCH (12:30)
[2021-06-14] MEDS ORDERED: Meropenem 1 GM in Sodium Chloride 0.9% 100 ML IVPB SCH ×2 (15:00→22:00)
[2021-06-14 15:44] LABS: Vancomycin, Random 41.1 ug/mL (See Comment)
[2021-06-14] MEDS: fentaNYL Citrate-0.9 % NaCl/PF 100 ML IVPB SCH (17:13)
[2021-06-14] MEDS: Albumin 25% 25 GM/100 ML BOT IVPB SCH ×2 (18:32→23:22)
[2021-06-14] MEDS: Lactated Ringer's 1,000 ML IV SCH (20:37)
[2021-06-15] MEDS: Meropenem 1 GM in Sodium Chloride 0.9% 100 ML IVPB SCH ×2 (02:40→15:03)
[2021-06-15] MEDS: Propofol 1,000 MG/100 ML VIAL IV PRN (03:01)
[2021-06-15 04:05] LABS: Band 22 % (5-11); Hemoglobin 7.6 g/dL (12.0-16.0); Hypochromia SLIGHT = 6-15 cells (100X) (0-5/hpf); Lymphocytes 11 % (21-51); MDiff Complete? YES; Mean Corpuscular HGB CONC 31.6 g/dL (32.0-36.0); Mean Corpuscular Hemoglobin 29.3 pg (27.0-31.0); Mean Corpuscular Volume 92.7 fL (78.0-98.0); Monocytes 4 % (0-10); Neutrophil 63 % (42-75); Platelet Count 436 thou/uL (130-400); Platelet Morphology Comment Appears Increased
[2021-06-15 04:23] LABS: ALT (SGPT) 8 U/L (8-55); AST (SGOT) 15 U/L (5-34); Albumin 2.8 g/dL (3.4-4.8); Alkaline Phosphatase 69 U/L (40-110); Anion Gap 17 mmol/L (10-20); BUN (Urea Nitrogen) 51 mg/dL (9.8-20.1); Bilirubin, Total 1.1 mg/dL (0.2-1.2); Calc. Creatinine Clearance 48 mL/min (70-130); Calcium 8.1 mg/dL (7.8-10.44); Carbon Dioxide 20 mmol/L (23-31); Chloride 109 mmol/L (98-107); Globulin 2.4 g/dL (2.4-3.5); Glucose 102 mg/dL (80-115); Magnesium 2.4 mg/dL (1.6-2.6); Potassium 4.1 mmol/L (3.5-5.1); Protein, Total 5.2 g/dL (5.8-8.1); Sodium 142 mmol/L (136-145)
[2021-06-15] MEDS: Norepinephrine 8 MG/0.9% NS 250 ML IVPB PRN (05:12)
[2021-06-15] MEDS: Albumin 25% 25 GM/100 ML BOT IVPB SCH ×3 (05:14→18:23)
[2021-06-15] MEDS: Acetaminophen 325 MG TAB PO SCH ×4 (05:16→23:37)
[2021-06-15] MEDS: Lactated Ringer's 1,000 ML IV SCH ×2 (05:16→16:50)
[2021-06-15] MEDS: Mometasone 100 MCG/Formoterol 5 MCG 120 PUFF INHALER INH SCH ×2 (06:52→18:38)
[2021-06-15 06:58] LABS: Actual Bicarbonate (HCO3a) 16.7 mEq/L (22-28); Base Excess (BEa) -8.1 mEq/L (-2.0 to +3.0); CO2 Tension 30.9 mmHg (35.0-45.0); Calcium, Ionized (arterial) 1.13 mmol/L (1.12-1.30); Carboxyhemoglobin (COHb) 1.3 gm% (0.0-3.0); Hemoglobin (Hb) 7.1 g/dL (12.0-16.0); O2 Tension (PaO2), arterial 67.3 mmHg (> 80.0); Potassium - ABG Lab 3.93 mmol/L (3.70-5.30); pH, Arterial 7.35 (7.35-7.45)
[2021-06-15 07:06] LABS: ALV-art Gradient 179.275 mmHg (0-20); Puncture Site LRA
[2021-06-15] MEDS: Pantoprazole 40 MG VIAL IVP SCH (08:51)
[2021-06-15] MEDS: Enoxaparin Sodium 30 MG/0.3 ML SYRINGE SC SCH (08:53)
[2021-06-15] MEDS: Midazolam In 0.9 % NaCl/PF 100 ML IVPB SCH (09:00)
[2021-06-15] MEDS: TIOTROPIUM INH SCH (09:51)
[2021-06-15] MEDS: fentaNYL Citrate-0.9 % NaCl/PF 100 ML IVPB SCH (13:21)
[2021-06-15] MEDS: Methylnaltrexone 12 MG/0.6 ML VIAL SC SCH (13:27)
[2021-06-16] MEDS: Albumin 25% 25 GM/100 ML BOT IVPB SCH ×3 (00:12→12:17)
[2021-06-16] MEDS: Meropenem 1 GM in Sodium Chloride 0.9% 100 ML IVPB SCH ×2 (02:50→16:29)
[2021-06-16] MEDS: Lactated Ringer's 1,000 ML IV SCH (02:51)
[2021-06-16] MEDS: Midazolam In 0.9 % NaCl/PF 100 ML IVPB SCH (05:08)
[2021-06-16] MEDS: Acetaminophen 325 MG TAB PO SCH ×3 (05:23→16:29)
[2021-06-16] MEDS: Mometasone 100 MCG/Formoterol 5 MCG 120 PUFF INHALER INH SCH ×2 (05:38→18:51)
[2021-06-16 05:41] LABS: ALT (SGPT) 8 U/L (8-55); AST (SGOT) 16 U/L (5-34); Albumin 3.5 g/dL (3.4-4.8); Alkaline Phosphatase 76 U/L (40-110); Anion Gap 18 mmol/L (10-20); BUN (Urea Nitrogen) 46 mg/dL (9.8-20.1); Bilirubin, Total 1.5 mg/dL (0.2-1.2); Calc. Creatinine Clearance 66 mL/min (70-130); Calcium 8.5 mg/dL (7.8-10.44); Carbon Dioxide 19 mmol/L (23-31); Chloride 110 mmol/L (98-107); Globulin 2.3 g/dL (2.4-3.5); Glucose 87 mg/dL (80-115); Magnesium 2.4 mg/dL (1.6-2.6); Protein, Total 5.8 g/dL (5.8-8.1); Sodium 143 mmol/L (136-145)
[2021-06-16 05:42] LABS: Band 24 % (5-11); Hypochromia SLIGHT = 6-15 cells (100X) (0-5/hpf); MDiff Complete? YES; Mean Corpuscular HGB CONC 31.6 g/dL (32.0-36.0); Mean Corpuscular Hemoglobin 29.2 pg (27.0-31.0); Mean Corpuscular Volume 92.6 fL (78.0-98.0); Mean Platelet Volume 7.2 fL (7.4-10.4); Metamyelocyte 1 % (0-0); Monocytes 4 % (0-10); Myelocyte 1 % (0-0); Neutrophil 70 % (42-75); Platelet Count 343 thou/uL (130-400); Platelet Morphology Comment Appears Adequate; Polychromasia SLIGHT = 2-3 cells (100X) (0-2/hpf); RBC Distribution Width 22.1 % (11.5-14.5); Target Cells SLIGHT = 2-5 cells (100X) (0-1/hpf); White Blood Cell (WBC) Count 19.7 thou/uL (4.8-10.8)
[2021-06-16 07:21] LABS: Actual Bicarbonate (HCO3a) 17.1 mEq/L (22-28); Base Excess (BEa) -8.8 mEq/L (-2.0 to +3.0); Calcium, Ionized (arterial) 1.19 mmol/L (1.12-1.30); Carboxyhemoglobin (COHb) 1.7 gm% (0.0-3.0); Hemoglobin (Hb) 6.8 g/dL (12.0-16.0); O2 Tension (PaO2), arterial 72.2 mmHg (> 80.0); Potassium - ABG Lab 4.03 mmol/L (3.70-5.30); pH, Arterial 7.28 (7.35-7.45)
[2021-06-16 07:25] LABS: Puncture Site RRA
[2021-06-16] MEDS: TIOTROPIUM INH SCH (08:15)
[2021-06-16] MEDS: Pantoprazole 40 MG VIAL IVP SCH (08:15)
[2021-06-16] MEDS: fentaNYL Citrate-0.9 % NaCl/PF 100 ML IVPB SCH (09:06)
[2021-06-16] MEDS: Fluconazole In NaCl,Iso-Osm 200 MG in Premix Bag 1 BAG IVPB SCH (09:25)
[2021-06-16 10:08] LABS: SARS-CoV-2 NAA Rapid Test Not Detected (NotDetected)
[2021-06-16] MEDS: Sodium Bicarbonate 140 MEQ in Dextrose 5% in Water 1,000 ML IV SCH (10:16)
[2021-06-16 18:05] LABS: SARS-CoV-2 PCR by NAA Not Detected (NotDetected)
[2021-06-16 18:14] LABS: Vancomycin, Random 15.7 ug/mL (See Comment)
[2021-06-16] MEDS ORDERED: VANCOMYCIN IVPB SCH (18:45)
[2021-06-16] MEDS ORDERED: SODIUM CHLORIDE 0.9% IVPB SCH (18:45)
[2021-06-16] MEDS ORDERED: Vancomycin HCl 750 MG in Sodium Chloride 0.9% 250 ML 250 ML IVPB SCH (20:00)
[2021-06-17] MEDS: Acetaminophen 325 MG TAB PO SCH ×3 (00:14→11:09)
[2021-06-17] MEDS: Midazolam In 0.9 % NaCl/PF 100 ML IVPB SCH ×2 (01:03→20:58)
[2021-06-17] MEDS: Sodium Bicarbonate 140 MEQ in Dextrose 5% in Water 1,000 ML IV SCH (01:09)
[2021-06-17] MEDS: Meropenem 1 GM in Sodium Chloride 0.9% 100 ML IVPB SCH ×2 (02:43→14:53)
[2021-06-17] MEDS: fentaNYL Citrate-0.9 % NaCl/PF 100 ML IVPB SCH ×2 (03:41→20:13)
[2021-06-17] MEDS: Mometasone 100 MCG/Formoterol 5 MCG 120 PUFF INHALER INH SCH ×2 (05:34→18:41)
[2021-06-17 05:50] LABS: Band 22 % (5-11); Eosinophils 1 % (0-10); Hemoglobin 8.9 g/dL (12.0-16.0); Hypochromia SLIGHT = 6-15 cells (100X) (0-5/hpf); MDiff Complete? YES; Mean Corpuscular HGB CONC 31.4 g/dL (32.0-36.0); Mean Corpuscular Hemoglobin 28.8 pg (27.0-31.0); Mean Corpuscular Volume 91.8 fL (78.0-98.0); Mean Platelet Volume 7.6 fL (7.4-10.4); Monocytes 4 % (0-10); Neutrophil 73 % (42-75); Platelet Count 324 thou/uL (130-400); Platelet Morphology Comment Appears Adequate; RBC Distribution Width 20.8 % (11.5-14.5); Red Blood Cell (RBC) Count 3.09 mill/uL (4.20-5.40); White Blood Cell (WBC) Count 18.1 thou/uL (4.8-10.8)
[2021-06-17 06:00] LABS: ALT (SGPT) 9 U/L (8-55); AST (SGOT) 27 U/L (5-34); Albumin 2.9 g/dL (3.4-4.8); Alkaline Phosphatase 81 U/L (40-110); Anion Gap 14 mmol/L (10-20); BUN (Urea Nitrogen) 41 mg/dL (9.8-20.1); Bilirubin, Total 2.5 mg/dL (0.2-1.2); Calc. Creatinine Clearance 87 mL/min (70-130); Calcium 8.4 mg/dL (7.8-10.44); Carbon Dioxide 24 mmol/L (23-31); Chloride 111 mmol/L (98-107); Globulin 2.3 g/dL (2.4-3.5); Glucose 125 mg/dL (80-115); Magnesium 2.2 mg/dL (1.6-2.6); Potassium 3.7 mmol/L (3.5-5.1); Protein, Total 5.2 g/dL (5.8-8.1); Sodium 145 mmol/L (136-145)
[2021-06-17] MEDS: Acetaminophen 650 MG Suppository PR SCH ×3 (06:42→17:38)
[2021-06-17 07:31] LABS: Actual Bicarbonate (HCO3a) 22.5 mEq/L (22-28); Base Excess (BEa) -1.7 mEq/L (-2.0 to +3.0); Calcium, Ionized (arterial) 1.14 mmol/L (1.12-1.30); Hemoglobin (Hb) 9.1 g/dL (12.0-16.0); Potassium - ABG Lab 3.52 mmol/L (3.70-5.30); pH, Arterial 7.41 (7.35-7.45)
[2021-06-17 07:50] LABS: O2 Tension (PaO2), arterial 57.2 mmHg (> 80.0); Puncture Site RRA
[2021-06-17] MEDS ORDERED: Electrolyte Replacement Protocol FS PRN (08:45)
[2021-06-17] MEDS: Pantoprazole 40 MG VIAL IVP SCH (08:46)
[2021-06-17] MEDS: Fluconazole In NaCl,Iso-Osm 200 MG in Premix Bag 1 BAG IVPB SCH (08:46)
[2021-06-17] MEDS: TIOTROPIUM INH SCH (08:46)
[2021-06-17] MEDS: Methylnaltrexone 12 MG/0.6 ML VIAL SC SCH ×2 (12:25→13:33)
[2021-06-17] MEDS: Multivitamins, Adult 10 ML, TRACE ELEMENT CONCENTRATE 1 ML in D15W-AA 5% w/o Lytes 2,00... IV SCH (14:53)
[2021-06-17 18:42] LABS: Vancomycin, Random 15.3 ug/mL (See Comment)
[2021-06-17] MEDS ORDERED: Vancomycin HCl 750 MG in Sodium Chloride 0.9% 250 ML 250 ML IVPB SCH (20:00)
[2021-06-18] MEDS: Acetaminophen 650 MG Suppository PR SCH ×4 (00:04→18:00)
[2021-06-18] MEDS: Meropenem 1 GM in Sodium Chloride 0.9% 100 ML IVPB SCH ×3 (04:00→21:08)
[2021-06-18] MEDS: Mometasone 100 MCG/Formoterol 5 MCG 120 PUFF INHALER INH SCH ×2 (06:29→18:18)
[2021-06-18 07:15] LABS: Actual Bicarbonate (HCO3a) 20.1 mEq/L (22-28); Base Excess (BEa) -3.5 mEq/L (-2.0 to +3.0); CO2 Tension 30.7 mmHg (35.0-45.0); Calcium, Ionized (arterial) 1.16 mmol/L (1.12-1.30); Carboxyhemoglobin (COHb) 1.6 gm% (0.0-3.0); Hemoglobin (Hb) 8.5 g/dL (12.0-16.0); O2 Tension (PaO2), arterial 96.2 mmHg (> 80.0); Potassium - ABG Lab 3.28 mmol/L (3.70-5.30); pH, Arterial 7.43 (7.35-7.45)
[2021-06-18 07:17] LABS: ALV-art Gradient 150.625 mmHg (0-20); Puncture Site LRA
[2021-06-18 08:03] LABS: Hemoglobin 8.9 g/dL (12.0-16.0); Mean Corpuscular HGB CONC 30.5 g/dL (32.0-36.0); Mean Corpuscular Hemoglobin 28.8 pg (27.0-31.0); Mean Corpuscular Volume 94.4 fL (78.0-98.0); Mean Platelet Volume 8.3 fL (7.4-10.4); Platelet Count 344 thou/uL (130-400); RBC Distribution Width 21.4 % (11.5-14.5); White Blood Cell (WBC) Count 15.1 thou/uL (4.8-10.8)
[2021-06-18 08:06] LABS: ALT (SGPT) 10 U/L (8-55); AST (SGOT) 27 U/L (5-34); Albumin 2.4 g/dL (3.4-4.8); Alkaline Phosphatase 75 U/L (40-110); Anion Gap 14 mmol/L (10-20); BUN (Urea Nitrogen) 43 mg/dL (9.8-20.1); Bilirubin, Total 1.6 mg/dL (0.2-1.2); Calc. Creatinine Clearance 102 mL/min (70-130); Calcium 7.9 mg/dL (7.8-10.44); Carbon Dioxide 22 mmol/L (23-31); Chloride 113 mmol/L (98-107); Globulin 2.6 g/dL (2.4-3.5); Glucose 138 mg/dL (80-115); Magnesium 2.1 mg/dL (1.6-2.6); Potassium 3.8 mmol/L (3.5-5.1); Sodium 145 mmol/L (136-145)
[2021-06-18] MEDS: Pantoprazole 40 MG VIAL IVP SCH (08:40)
[2021-06-18] MEDS: TIOTROPIUM INH SCH (08:41)
[2021-06-18] MEDS: fentaNYL Citrate-0.9 % NaCl/PF 100 ML IVPB SCH (09:21)
[2021-06-18 11:10] LABS: Anisocytosis SLIGHT = 6-15 cells (100X) (0-5/hpf); Band 35 % (5-11); Eosinophils 2 % (0-10); Hypochromia MODERATE=16-30 cells (100X) (0-5/hpf); Lymphocytes 6 % (21-51); MDiff Complete? YES; Monocytes 3 % (0-10); Myelocyte 1 % (0-0); Neutrophil 52 % (42-75); Platelet Morphology Comment Appears Adequate; Polychromasia SLIGHT = 2-3 cells (100X) (0-2/hpf)
[2021-06-18 12:17] VITALS: BMI 42.4
[2021-06-18] MEDS: Multivitamins, Adult 10 ML, TRACE ELEMENT CONCENTRATE 1 ML in D15W-AA 5% w/o Lytes 2,00... IV SCH (15:33)
[2021-06-18] MEDS: Midazolam In 0.9 % NaCl/PF 100 ML IVPB SCH (16:34)
[2021-06-18] MEDS: Lorazepam 2 MG/ML VIAL SLOW IVP PRN (16:34)
[2021-06-19] MEDS: Acetaminophen 650 MG Suppository PR SCH ×5 (00:09→23:53)
[2021-06-19] MEDS: fentaNYL Citrate-0.9 % NaCl/PF 100 ML IVPB SCH ×2 (01:09→17:26)
[2021-06-19] MEDS: Meropenem 1 GM in Sodium Chloride 0.9% 100 ML IVPB SCH ×3 (04:25→19:57)
[2021-06-19 04:47] LABS: Band 40 % (5-11); Eosinophils 1 % (0-10); Hemoglobin 8.8 g/dL (12.0-16.0); Hypochromia SLIGHT = 6-15 cells (100X) (0-5/hpf); MDiff Complete? YES; Mean Corpuscular HGB CONC 31.4 g/dL (32.0-36.0); Mean Corpuscular Hemoglobin 29.6 pg (27.0-31.0); Mean Corpuscular Volume 94.3 fL (78.0-98.0); Mean Platelet Volume 8.4 fL (7.4-10.4); Neutrophil 59 % (42-75); Platelet Count 357 thou/uL (130-400); Platelet Morphology Comment Appears Adequate; RBC Distribution Width 21.1 % (11.5-14.5); Red Blood Cell (RBC) Count 2.97 mill/uL (4.20-5.40)
[2021-06-19 04:53] LABS: ALT (SGPT) 7 U/L (8-55); AST (SGOT) 23 U/L (5-34); Albumin 2.3 g/dL (3.4-4.8); Alkaline Phosphatase 78 U/L (40-110); Anion Gap 11 mmol/L (10-20); BUN (Urea Nitrogen) 50 mg/dL (9.8-20.1); Bilirubin, Total 1.3 mg/dL (0.2-1.2); Calc. Creatinine Clearance 90 mL/min (70-130); Calcium 7.7 mg/dL (7.8-10.44); Carbon Dioxide 23 mmol/L (23-31); Chloride 112 mmol/L (98-107); Globulin 2.6 g/dL (2.4-3.5); Glucose 130 mg/dL (80-115); Potassium 3.4 mmol/L (3.5-5.1); Protein, Total 4.9 g/dL (5.8-8.1); Sodium 143 mmol/L (136-145)
[2021-06-19] MEDS: Mometasone 100 MCG/Formoterol 5 MCG 120 PUFF INHALER INH SCH ×2 (06:16→20:22)
[2021-06-19] MEDS ORDERED: Magnesium 2 GM/50 ML 2 GM in Premix Bag 1 BAG IVPB SCH (07:00)
[2021-06-19 07:31] LABS: Actual Bicarbonate (HCO3a) 21.1 mEq/L (22-28); Analyzer IN Cardio ER; Calcium, Ionized (arterial) 1.14 mmol/L (1.12-1.30); Carboxyhemoglobin (COHb) 0.9 gm% (0.0-3.0); Hemoglobin (Hb) 6.5 g/dL (12.0-16.0); O2 Tension (PaO2), arterial 66.3 mmHg (> 80.0); Potassium - ABG Lab 3.48 mmol/L (3.70-5.30); pH, Arterial 7.36 (7.35-7.45)
[2021-06-19 07:47] LABS: Puncture Site RRA
[2021-06-19] MEDS: TIOTROPIUM INH SCH (09:25)
[2021-06-19] MEDS: Pantoprazole 40 MG VIAL IVP SCH (09:25)
[2021-06-19] MEDS: Enoxaparin Sodium 30 MG/0.3 ML SYRINGE SC SCH (09:25)
[2021-06-19] MEDS: Potassium Chloride 10 MEQ in Premix Bag 1 BAG IVPB SCH ×4 (09:55→16:43)
[2021-06-19] MEDS: Potassium Chloride 20 MEQ in Premix Bag 1 BAG IVPB SCH (10:06)
[2021-06-19 11:16] LABS: Phosphorus 2.4 mg/dL (2.3-4.7)
[2021-06-19] MEDS: Midazolam In 0.9 % NaCl/PF 100 ML IVPB SCH (12:22)
[2021-06-19] MEDS: Methylnaltrexone 12 MG/0.6 ML VIAL SC SCH (14:23)
[2021-06-19] MEDS ORDERED: Furosemide 40 MG/4 ML VIAL SLOW IVP SCH (15:00)
[2021-06-19] MEDS: Multivitamins, Adult 10 ML, TRACE ELEMENT CONCENTRATE 1 ML in D15W-AA 5% w/o Lytes 2,00... IV SCH (15:22)
[2021-06-19] MEDS: Lorazepam 2 MG/ML VIAL SLOW IVP PRN (17:25)
[2021-06-20] MEDS: Meropenem 1 GM in Sodium Chloride 0.9% 100 ML IVPB SCH ×2 (04:25→11:56)
[2021-06-20] MEDS: Acetaminophen 650 MG Suppository PR SCH ×2 (05:25→11:56)
[2021-06-20] MEDS: Midazolam In 0.9 % NaCl/PF 100 ML IVPB SCH (05:47)
[2021-06-20] MEDS: Mometasone 100 MCG/Formoterol 5 MCG 120 PUFF INHALER INH SCH (07:14)
[2021-06-20 07:41] LABS: Hemoglobin 8.6 g/dL (12.0-16.0); Mean Corpuscular HGB CONC 30.4 g/dL (32.0-36.0); Mean Corpuscular Hemoglobin 29.2 pg (27.0-31.0); Mean Corpuscular Volume 96.1 fL (78.0-98.0); Mean Platelet Volume 8.6 fL (7.4-10.4); Platelet Count 347 thou/uL (130-400); RBC Distribution Width 21.3 % (11.5-14.5); Red Blood Cell (RBC) Count 2.94 mill/uL (4.20-5.40); White Blood Cell (WBC) Count 20.5 thou/uL (4.8-10.8)
[2021-06-20 08:02] LABS: ALT (SGPT) 11 U/L (8-55); AST (SGOT) 37 U/L (5-34); Albumin 2.2 g/dL (3.4-4.8); Alkaline Phosphatase 96 U/L (40-110); Anion Gap 11 mmol/L (10-20); BUN (Urea Nitrogen) 63 mg/dL (9.8-20.1); Bilirubin, Total 1.4 mg/dL (0.2-1.2); Calc. Creatinine Clearance 86 mL/min (70-130); Calcium 7.7 mg/dL (7.8-10.44); Carbon Dioxide 20 mmol/L (23-31); Chloride 111 mmol/L (98-107); Globulin 2.9 g/dL (2.4-3.5); Glucose 130 mg/dL (80-115); Potassium 3.9 mmol/L (3.5-5.1); Protein, Total 5.1 g/dL (5.8-8.1); Sodium 138 mmol/L (136-145)
[2021-06-20] MEDS: Pantoprazole 40 MG VIAL IVP SCH (08:09)
[2021-06-20] MEDS: fentaNYL Citrate-0.9 % NaCl/PF 100 ML IVPB SCH (08:09)
[2021-06-20] MEDS: Enoxaparin Sodium 30 MG/0.3 ML SYRINGE SC SCH (08:09)
[2021-06-20 08:59] LABS: Band 28 % (5-11); Eosinophils 5 % (0-10); Hypochromia SLIGHT = 6-15 cells (100X) (0-5/hpf); Lymphocytes 2 % (21-51); MDiff Complete? YES; Metamyelocyte 1 % (0-0); Monocytes 6 % (0-10); Myelocyte 1 % (0-0); Neutrophil 57 % (42-75); Nucleated RBC 2 % (0); Platelet Morphology Comment Appears Adequate; Polychromasia MODERATE = 3-4 cells (100X) (0-2/hpf)
[2021-06-20] MEDS ORDERED: Furosemide 40 MG/4 ML VIAL SLOW IVP SCH (09:00)
[2021-06-20] MEDS: TIOTROPIUM INH SCH (09:50)
[2021-06-20 10:35] VITALS: BP 95/60
[2021-06-20 12:11] VITALS: TEMP 98.2
[2021-06-20] MEDS: Multivitamins, Adult 10 ML, TRACE ELEMENT CONCENTRATE 1 ML in D15W-AA 5% w/o Lytes 2,00... IV SCH (14:44)
== END 2021-06-20 15:00 | disposition hospice, inpatient (51) | DRG 870 ==
LOC: ERS 14:19 → T4-A 18:08 → IMCU/EMU 06-11 08:52 → CCU 06-11 09:45
PROVIDERS: ADMIT Student in an Organized Health Care Education/Training Program; ATTEND Student in an Organized Health Care Education/Training Program
PROC: 3E03329 Introduction of Other Anti-infective into Peripheral Vein, Percutaneous Approach (ICD-10-PCS; 2021-05-30)
PROC: 3E0G76Z Introduction of Nutritional Substance into Upper GI, Via Natural or Artificial Opening (ICD-10-PCS; 2021-06-04)
PROC: 02HV33Z Insertion of Infusion Device into Superior Vena Cava, Percutaneous Approach (ICD-10-PCS; 2021-06-11)
PROC: 5A09357 Assistance with Respiratory Ventilation, Less than 24 Consecutive Hours, Continuous Positive Airway Pressure (ICD-10-PCS; 2021-06-11)
PROC: 5A1955Z Respiratory Ventilation, Greater than 96 Consecutive Hours (ICD-10-PCS; principal; 2021-06-12)
PROC: 0D9670Z Drainage of Stomach with Drainage Device, Via Natural or Artificial Opening (ICD-10-PCS; 2021-06-12)
PROC: 0BH17EZ Insertion of Endotracheal Airway into Trachea, Via Natural or Artificial Opening (ICD-10-PCS; 2021-06-12)
PROC: 3E0336Z Introduction of Nutritional Substance into Peripheral Vein, Percutaneous Approach (ICD-10-PCS; 2021-06-13)
PROC: 3E043XZ Introduction of Vasopressor into Central Vein, Percutaneous Approach (ICD-10-PCS; 2021-06-14)
PROC: 30233N1 Transfusion of Nonautologous Red Blood Cells into Peripheral Vein, Percutaneous Approach (ICD-10-PCS; 2021-06-16)
DX: A41.9 Sepsis, unspecified organism (principal); Z66 Do not resuscitate; Z20.822 Contact with and (suspected) exposure to COVID-19; Z51.5 Encounter for palliative care; K85.91 Acute pancreatitis with uninfected necrosis, unspecified; R65.21 Severe sepsis with septic shock; J18.9 Pneumonia, unspecified organism; R57.8 Other shock; J80 Acute respiratory distress syndrome; J69.0 Pneumonitis due to inhalation of food and vomit; K86.3 Pseudocyst of pancreas; J44.1 Chronic obstructive pulmonary disease with (acute) exacerbation; J44.0 Chronic obstructive pulmonary disease with (acute) lower respiratory infection; K56.7 Ileus, unspecified; N17.9 Acute kidney failure, unspecified; B37.49 Other urogenital candidiasis; E87.2 Acidosis; I50.30 Unspecified diastolic (congestive) heart failure; Z68.41 Body mass index [BMI] 40.0-44.9, adult; E87.1 Hypo-osmolality and hyponatremia; J90 Pleural effusion, not elsewhere classified; J98.11 Atelectasis; F31.9 Bipolar disorder, unspecified; J44.9 Chronic obstructive pulmonary disease, unspecified; F20.9 Schizophrenia, unspecified; F41.1 Generalized anxiety disorder; E86.9 Volume depletion, unspecified; K29.70 Gastritis, unspecified, without bleeding; F17.210 Nicotine dependence, cigarettes, uncomplicated; E66.9 Obesity, unspecified; I27.20 Pulmonary hypertension, unspecified; N26.1 Atrophy of kidney (terminal); K44.9 Diaphragmatic hernia without obstruction or gangrene; I11.0 Hypertensive heart disease with heart failure; E87.6 Hypokalemia; K59.03 Drug induced constipation; T40.2X5A Adverse effect of other opioids, initial encounter; Y95 Nosocomial condition; K62.89 Other specified diseases of anus and rectum; E80.6 Other disorders of bilirubin metabolism; K86.89 Other specified diseases of pancreas; D50.0 Iron deficiency anemia secondary to blood loss (chronic); Z78.1 Physical restraint status; Z88.5 Allergy status to narcotic agent; Z79.899 Other long term (current) drug therapy; Z98.890 Other specified postprocedural states; Z90.49 Acquired absence of other specified parts of digestive tract; Z90.89 Acquired absence of other organs; Z87.11 Personal history of peptic ulcer disease; Z87.01 Personal history of pneumonia (recurrent); Z86.19 Personal history of other infectious and parasitic diseases
CPT/HCPCS: 36415; 36416; 36430; 36600; 71045; 71046; 71275; 74018; 74176; 74177; 74183; 76705; 80053; 80061; 80202; 80306; 80307; 81001; 81003; 82248; 82271; 82570; 82805; 83010; 83036; 83605; 83615; 83690; 83735; 83880; 84100; 84145; 84300; 84484; 84540; 85007; 85025; 85027; 85379; 86301; 86850; 86900; 86901; 87040; 87070; 87086; 87205; 87804; 93005; 93010; 93306; 94002; 94003; 94660; 96365; 96367; 96375; A9579; C9113; J0360; J0456; J0500; J0692; J0696; J1200; J1450; J1630; J1650; J1885; J1940; J2060; J2185; J2212; J2270; J2405; J2543; J2550; J2704; J2920; J3010; J3370; J3475; J3480; J3490; J7050; J7070; J7120; J7512; J7611; J7620; P9016; P9047; Q9963; Q9967; U0002; U0003; U0005